=== PATIENT | female | born 1955 | race Caucasian/White ===

== ENCOUNTER 2018-12-14 06:43 | Inpatient (IN) | payer OTHER ==
--- NOTE | 2018-12-01 14:59 | HP ---
Amended report to enter cosigning physician. HISTORY AND PHYSICAL: DATE OF ADMISSION/SURGERY: 12/14/18 DATE OF OFFICE VISIT: 12/01/18 SURGEON: Mary Ann Rodriguez MD* (dictated by ANNETTE Thrasher). PROCEDURE: Left total knee arthroplasty. CHIEF COMPLAINT: Left knee pain. HISTORY OF PRESENT ILLNESS: Ms. Gonzalez is a 63-year-old female with complaints of left knee pain. She has failed conservative treatment and elected to proceed with a left total knee arthroplasty. PAST MEDICAL HISTORY: 1. Hypothyroidism. 2. High cholesterol. 3. GERD. 4. Mitral valve prolapse. PAST SURGICAL HISTORY: Bunionectomy. CURRENT MEDICATIONS: 1. Levothyroxine 88 mcg a day. 2. Omeprazole 40 mg a day. 3. Rosuvastatin calcium 10 mg a day. 4. Ibuprofen as needed. 5. Trazodone 100 mg q.h.s. 6. Equate Allergy Relief. 7. Mometasone as needed. ALLERGIES: PENICILLIN and CODEINE. FAMILY HISTORY: Coronary artery disease and diabetes. SOCIAL HISTORY: She is a 63-year-old female. She lives with her . She does not smoke. She quit 5 years ago. Denies use of drugs. Use of occasional alcohol. REVIEW OF SYSTEMS: A complete 14-point review of systems was reviewed with the patient. It was positive for hypothyroidism and GERD. She denies history of DVT, PE, hepatitis, HIV, or anesthesia problems. PHYSICAL EXAMINATION GENERAL: She is well developed, well nourished, in no acute distress. VITAL SIGNS: She stands 5 feet 2 inches tall, weighs 172 pounds. Her blood pressure is 122/84. Heart rate is 78. HEENT: Normocephalic, atraumatic. NECK: Supple. No palpable lymph nodes. PULMONARY: The lungs are clear to auscultation bilaterally. CARDIO: Regular rate and rhythm. Strong S1, S2. ABDOMEN: Soft, nontender, nondistended. NEUROLOGICAL: She is alert and oriented x3. MUSCULOSKELETAL: Left lower extremity: The skin is intact. There are no open wounds or abrasions. There is a moderate effusion of the left knee joint. Range of motion is 10 to 120 degrees of flexion. She has some tenderness over the medial and lateral joint line. She has a 2+ dorsalis pedis pulse. She is able to dorsiflex and plantarflex and has intact sensation. ASSESSMENT AND PLAN: Ms. Gonzalez is a 63-year-old female with endstage osteoarthritis of the left knee. She has failed conservative treatment and elected to proceed with a left total knee arthroplasty. The surgery is scheduled for 12/14/[address] Rodriguez discussed the risks and benefits of the surgery at today's visit and all of her questions were answered. She will follow up with Dr. Rodriguez 2 weeks after the surgery. ANNETTE THRASHER [id number]/CPS #: [id number] MTDDanielle
[~2018-12-14 06:43] MED LIST: Buffered Lidocaine 1% SYRIN* 1 ML/SYRINGE INTRADERM ONE; Famotidine IV* 10 MG/ML 2 ML (20 mg) IV ONE; Gabapentin CAP(*) 300 MG PO ONE; Lactated Ringers 1000 ML Bag* 1,000 ML IV SCH; Tranexamic Acid 1,000 MG in NS 0.9% 50 ML* (outpatient use) IV SCH
--- OUTSIDE RECORDS SUMMARY | 2018-12-14 06:46 | XMS REPORT | Continuity of Care Document ---
:1955 External Reference #:[id number] Author Name Gita Johnson Care Team Providers Name Role Phone Bebo Alvarez MD Primary Care Physician Unavailable Payers Date Identification Numbers Payment Provider Subscriber Policy Number: [id number] Lifetime Benefit Solution Jihan Gonzalez PayID: [id number] [address] [place] [address] Problems Active Problems Provider Date Localized, primary osteoarthritis Mary Ann Rodriguez M.D. Onset: 07/21/2018 Metatarsalgia Mary Ann Rodriguez M.D. Onset: 07/21/2018 Family History Date Family Member(s) Observation Comments General No Current Problems Social History Type Date Description Comments Sex Unknown Lives With Spouse Occupation Auto Inspection Specialist ETOH Use Drinks 6 Alcoholic Beverages Per Week Tobacco Use Start: Unknown End: Patient is a former smoker Unknown Smoking Status Reviewed: 12/01/18 Patient is a former smoker Exercise Type/Frequency Exercises sporadically Allergies, Adverse Reactions, Alerts Active Allergies Reaction Severity Comments Date Penicillin 07/21/2018 Codeine 07/21/2018 Medications Active Medications SIG Qnty Indications Ordering Provider Date Clindamycin HCL 1 tablet by 9caps M79.675 Mary Ann Rodriguez, 12/01/2018 150mg mouth every 8 M.D. Capsules hours x 3 days Levothyroxine Sodium 1 by mouth every Unknown 88mcg day Tablets Omeprazole 1 by mouth every Unknown 40mg Capsules DR day Rosuvastatin Calcium take 1 tablet by Unknown 10mg mouth every Tablets evening Ibuprofen 1 by mouth three Unknown 800mg Tablets times a day Trazodone HCL 1 by mouth QHS Unknown 50mg Tablets for sleep Allergy Relief Unknown Mometasone Furoate Unknown Ketoconazole Unknown Medications Administered in Office Medication SIG Qnty Indications Ordering Provider Date Synvisc Or Synvisc-One Injection 1 Michael Garcia MD 08/24/2018 MG Injection Synvisc Or Synvisc-One Injection 1 Michael Garcia MD 08/17/2018 MG Injection Synvisc Or Synvisc-One Injection 1 Michael Garcia MD 08/10/2018 MG Injection Vital Signs Date Vital Result Comment 12/01/2018 9:46am Height 62 inches 5'2" Weight 172.00 lb BP Systolic 122 mmHg BP Diastolic 84 mmHg Body Temperature 97.8 F BMI (Body Mass Index) 31.5 kg/m2 10/16/2018 3:18pm Height 62 inches 5'2" Weight 175.00 lb Heart Rate 80 /min BP Systolic 142 mmHg BP Diastolic 90 mmHg Respiratory Rate 18 /min Body Temperature 98.1 F Pain Level 6 BMI (Body Mass Index) 32.0 kg/m2 08/24/2018 9:02am Height 62 inches 5'2" Weight 170.00 lb BP Systolic Sitting 138 mmHg BP Diastolic Sitting 82 mmHg Respiratory Rate 16 /min Pain Level 5 BMI (Body Mass Index) 31.1 kg/m2 08/17/2018 2:32pm Height 62 inches 5'2" Heart Rate 89 /min BP Systolic Sitting 148 mmHg BP Diastolic Sitting 102 mmHg Respiratory Rate 16 /min Pain Level 6 08/10/2018 2:29pm Height 62 inches 5'2" Weight 170.00 lb BP Systolic Sitting 122 mmHg BP Diastolic Sitting 64 mmHg Respiratory Rate 17 /min Pain Level 6 catching and burning pain BMI (Body Mass Index) 31.1 kg/m2 07/21/2018 10:26am Height 62 inches 5'2" Weight 170.50 lb Heart Rate 78 /min BP Systolic 138 mmHg BP Diastolic 88 mmHg Respiratory Rate 18 /min Pain Level 6 BMI (Body Mass Index) 31.2 kg/m2 Procedures Date Code Description Status 08/24/2018 Inject/Drain Joint/Bursa Major W/O US Completed 08/17/2018 Inject/Drain Joint/Bursa Major W/O US Completed 08/10/2018 Inject/Drain Joint/Bursa Major W/O US Completed Encounters Type Date Location Provider Dx Diagnosis Office Visit 10/16/2018 [facility] Mary [facility] Michael, M17.12 [facility], [facility] M25.562 Pain in left knee M25.462 Effusion, left knee Office Visit 07/21/2018 9:30a [facility] Mary Ann Rodriguez, M25.562 [facility] M[facility]462 Effusion, left knee M17.12 Unilateral primary osteoarthritis, left knee M77.42 Metatarsalgia, left foot Plan of Treatment Future Appointment(s):12/25/2018 1:30 pm - Mary Ann Rodriguez M.D. at [facility].12/14/2018 2:00 pm - CARRILLO Jiménez at [facility].12/14/2018 2:00 pm - CARRILLO Daily at [facility].12/14/2018 2:00 pm - ANNETTE Rangel at [facility].12/14/2018 2:00 pm - Mary Ann Rodriguez M.D. at [facility].12/01/2018 - Mary Ann Rodriguez M.D.M17.12 Unilateral primary osteoarthritis, left kneeFollow up:Follow up: 2 weeks after [id number] Pain in left kneeM25.462 Effusion, left kneeM79.675 Pain in left toe(s)New Medication:Clindamycin HCL 150 mg - 1 tablet by mouth every 8 hours x 3 days
--- OUTSIDE RECORDS SUMMARY | 2018-12-14 06:46 | XMS REPORT | Continuity of Care Document ---
:1955 External Reference #:[id number] Author Name ANNETTE Rangel Address [address] , [place] [address] Care Team Providers Name Role Phone Bebo Alvarez MD Primary Care Physician Unavailable Payers Date Identification Numbers Payment Provider Subscriber Policy Number: [id number] Lifetime Benefit Solution Jihan Gonzalez PayID: [id number] [address] [place] [address] Problems Active Problems Provider Date Localized, primary osteoarthritis Mary Ann Rodriguez M.D. Onset: 07/21/2018 Metatarsalgia Mary Ann Rodriguez M.D. 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 Drinks 6 Alcoholic Beverages Per Week Tobacco Use Start: Unknown End: Patient is a former smoker Unknown Smoking Status Reviewed: 10/16/18 Patient is a former smoker Exercise Type/Frequency Exercises sporadically Allergies, Adverse Reactions, Alerts Active Allergies Reaction Severity Comments Date Penicillin 07/21/2018 Codeine 07/21/2018 Medications Active Medications SIG Qnty Indications Ordering Provider Date Levothyroxine Sodium 1 by mouth every Unknown 88mcg day Tablets Omeprazole 1 by mouth every Unknown 40mg Capsules DR day Rosuvastatin Calcium take 1 tablet by Unknown 10mg mouth every Tablets evening Ibuprofen 1 by mouth three Unknown 800mg Tablets times a day Trazodone HCL 1 by mouth QHS Unknown 50mg Tablets for sleep Medications Administered in Office Medication SIG Qnty Indications Ordering Provider Date Synvisc Or Synvisc-One Injection 1 Michael Garcia MD 08/24/2018 MG Injection Synvisc Or Synvisc-One Injection 1 Michael Garcia MD 08/17/2018 MG Injection Synvisc Or Synvisc-One Injection 1 Michael Garcia MD 08/10/2018 MG Injection Vital Signs Date Vital Result Comment 10/16/2018 3:18pm Height 62 inches 5'2" Weight [...] 31.2 kg/m2 Procedures Date Code Description Status 08/24/201829415 Inject/Drain Joint/Bursa Major W/O US Completed 08/17/201848184 Inject/Drain Joint/Bursa Major W/O US Completed 08/10/2018 24728 Inject/Drain Joint/Bursa Major W/O US Completed Encounters Type Date Location Provider Dx Diagnosis Office Visit 10/16/2018 [facility] Mary Ann Rodriguez, M17.12 Unilateral primary 2:45p [facility] osteoarthritis, left knee M25.562 Pain in left knee M25.462 Effusion, left knee Office Visit 07/21/2018 9:30a [facility] Mary Ann Rodriguez, M25.562 [facility] in left [facility] knee M25.462 Effusion, left knee M17.12 Unilateral primary osteoarthritis, left knee M77.42 Metatarsalgia, left foot Plan of Treatment Future Appointment(s):12/14/2018 2:00 pm - Mary Ann Rodriguez M.D. at [facility].12/01/2018 9:30 am - Mary Ann Rodriguez M.D. at [facility]..10/16/2018 - Mary Ann Rodriguez M.D.M17.12 Unilateral primary osteoarthritis, left kneeFollow up:Follow up: 7-10 days before [id number] Pain in left kneeM25.462 Effusion, left knee
--- OUTSIDE RECORDS SUMMARY | 2018-12-14 06:47 | XMS REPORT | Continuity of Care Document ---
:1955 External Reference #:[id number] Author Name Bebo Bass M.D. Address [address], [address] [place] [address] Care Team Providers Name Role Phone Bebo Bass M.D. Care Team Information Supervisor Riveting Unavailable Payers Date Identification Numbers Payment Provider Subscriber Policy Number: [id number] [employer] Jihan Gonzalez Group Number: [id number] PayID: [place] [address] Problems Active Problems Provider Date Mixed hyperlipidemia Bebo Bass M.D. Onset: 10/08/2010 Hypothyroidism Bebo Bass M.D. Onset: 10/08/2010 Gastro-esophageal reflux disease with SULY Mcginnis Onset: 05/30/2018 esophagitis Other sleep disorders SULY Mcginnis Onset: 05/30/2018 Candidiasis of skin and nails SULY Mcginnis Onset: 05/30/2018 Knee pain SULY Mcginnis Onset: 05/30/2018 Acute pharyngitis SULY Mcginnis Onset: 09/13/2018 Family History Date Family Member(s) Observation Comments Father due to Alzheimer's () Disease Father due to Diabetes () - at 78 Mother 84, htn, dm, on coumadin as of 02/07/2005 2009 Siblings Siblings: 6 , sister with thyroid [id number] dx with Vascular and chol Dementia Social History Type Date Description Comments Sex Unknown Marital Status Occupation [employer] currently working Tobacco Use Start: Unknown Occasionally Smokes Cigarettes ETOH Use Currently consumes 1 six packs of beer weekly Tobacco Use Start: Unknown End: Patient is a former smoker quit at age 56 Unknown Smoking Status Reviewed: 11/15/18 Patient is a former smoker quit at age 56 Allergies, Adverse Reactions, Alerts Active Allergies Reaction Severity Comments Date Penicillin 10/02/2003 Codeine 10/02/2003 Medications Active Medications SIG Qnty Indications Ordering Date Provider Mometasone Furoate apply to dry skin 15gm Bebo Bass, 11/15/2018 0.1% 1-2 times a day M.DToribio Ointment Trazodone HCL take 1 tablet by 90tabs G47.8 Sonia 10/24/2018 100mg mouth at bedtime SULY John Tablets Ketoconazole apply to affected 15gm B37.2 [facility] 05/30/2018 2% Cream area twice a day SULY John Rosuvastatin Calcium 1 by mouth every 30tabs E78.2 Sonia 05/30/2018 10mg day SULY John Tablets Ibuprofen take 1 by mouth 90tabs Sonia 08/13/2013 800mg Tablets three times a day SULY John w/ food Omeprazole 1 by mouth every 30caps Sonia 09/14/2012 40mg Capsules day SULY John DR Levothyroxine Sodium take one tablet 30tabs Sonia 12/03/2010 by mouth every SULY John 88mcg Tablets day History Medications Azithromycin 2 tabs by 6tabs J02.9 Sonia John, 09/12/2018 - 250mg mouth on day [facility] 09/22/2018 Tablets 1, then 1 tab by mouth day on days 2-5 Azithromycin 2 tabs by 6tabs J06.9 Sonia John, 07/31/2018 - 250mg mouth on day [facility] 08/10/2018 Tablets 1, then 1 tab by mouth day on days 2-5 Trazodone HCL 1 by mouth 30tabs G47.8 Sonia John, 05/30/2018 - 50mg every night at [facility] 10/24/2018 Tablets bedtime Sulfamethoxazole/Tri 1 by mouth 14tabs S50.812A Sonia John, 2016 - methoprim DS twice a day [employer] 04/23/2017 x7d 800-160mg Tablets Benzonatate take 1 by 30caps R05 Sonia John, 04/15/2017 - 200mg mouth three [facility] 04/25/2017 Capsules times a day as needed for cough. Azithromycin 2 tabs by 6tabs J06.9 Sonia John, 03/24/2017 - 250mg mouth on day [employer] 04/03/2017 Tablets 1, then 1 tab by mouth day on days 2-5 Valacyclovir HCL 1 by mouth 21tabs B02.9 Sonia John, 11/21/2015 - 1gm three times a [employer] 11/21/2015 Tablets day x 7 days Zovirax 1 po 5xs a 35tabs B02.9 Sonia John, 11/21/2015 - 800mg Tablets dayx7d [facility] 10/27/2016 Valacyclovir HCL 1 by mouth 21tabs B02.9 Sonia John, 11/21/2015 - 1gm three times a [facility] 10/27/2016 Tablets day x 7 days Diazepam 1 po bid prn 10tabs Bebo Bass, 08/13/2013 - 5mg Tablets panic attacks M.D. 08/07/2015 Trazodone HCL 1 po qhs 90tabs 780.52 Bebo Bass, 03/14/2013 - 50mg M.D. 08/07/2015 Tablets Diazepam 1 po bid prn 10tabs Bebo Bass, 09/14/2012 - 5mg Tablets panic attacks M.D. 03/14/2013 Lansoprazole 1 po qd 90caps Bebo Bass, 03/15/2012 - 30mg M.D. 09/14/[address] Azithromycin 2 tabs po on 6tabs 465.8 Sonia John, 09/29/2011 - 250mg day 1, then 1 [employer] 10/09/2011 Tablets tab po day on days 2-5 Ciprofloxacin HCL 1 po bid 20tabs 599.0 Bebo Bass, 09/16/2011 - M.D. 09/20/2011 500mg Tablets Azithromycin 2 tabs po on 6tabs 466.0 Bebo Bass, 03/30/2011 - 250mg day 1, then 1 M.D. 09/16/2011 Tablets tab po day on days 2-5 Simvastatin 1 po qd 45tabs 272.2 Bebo Bass, 07/27/2010 - 40mg M.D. 03/30/2011 Tablets Zolpidem Tartrate 1 po q hs prn 30tabs 780.79 Bebo Bass, 11/20/2009 - 5mg M.D. 09/14/2012 Tablets Levothroid 1 po qd 30tabs Bebo Bass, 11/11/2009 - 88mcg M.D. 12/03/2010 Tablets Azithromycin 2 tabs po on 6tabs 465.8 Sonia John, 07/30/2009 - 250mg day 1, then 1 [employer] 08/09/2009 Tablets tab po day on days 2-5 Darvocet-N 100 1 po hs pain 30tabs Bebo Bass, 05/22/2008 - 100 M.D. 05/23/2009 Tablets Ibuprofen take 1 po tid 270tabs 719.46 Bebo Bass, 05/22/2008 - 800mg w/ food M.D. 08/13/2013 Tablets Valtrex take 1 pill 21tabs 053.9 Sonia John, 04/08/2008 - 1gm Tablets q8hrs x7d [employer] 04/15/2008 Ibuprofen 1 po q6 hours 30tabs 719.46 Sonia John, 04/08/2008 - 600mg prn with food [employer] 05/22/2008 Tablets Lipitor 1 po qd 30tabs Bebo Bass, 07/19/2006 - 20mg Tablets M.D. 01/12/2007 Zithromax Z-Elver take 2pills 462 Sonia John, 06/15/2005 - 250mg today then 1 [employer] 08/25/2005 Tablets [id number] Levothroid 1 po qd 30tabs Bebo Bass, 02/09/2005 - 100McG M.D. 11/11/2009 Tablets Levothroid 1 po qd 30tabs Bebo Bass, 11/04/2004 - 75mcg M.D. 02/09/2005 Tablets Synthroid 1 po qd 30tabs Bebo Bass, 07/01/2003 - .075mg M.D. 11/04/2004 Tablets Prevacid 1 po qd 30caps Bebo Bass, 07/01/2003 - 30mg M.D. 03/15/2012 Capsules Melatonin 1 at bedtime Unknown - 10mg 05/30/2018 Capsules Medications Administered in Office Medication SIG Qnty Indications Ordering Provider Date Admin Of Vaccine,One Vaccine Injection/BP Schedule 04/15/2017 Injection Immunizations CPT Code Status Date Vaccine Lot # [id number] Given 04/15/2017 Tdap, adacel vaccine [facility] 71023-675-83 .[id number] Given 04/15/2017 Tdap, adacel vaccine [facility] 98137-977-74 .[id number] Given 03/21/2003 Tetanus&Diptheria Toxoid Immunization(deleted 2012) Vital Signs Date Vital Result Comment 11/15/2018 2:44pm Weight 178.00 lb Height 62 inches 5'2" BP Systolic 130 mmHg BP Diastolic 76 mmHg Body Temperature 98.3 F Heart Rate 86 /min BMI (Body Mass Index) 32.6 kg/m2 09/12/2018 11:23am Weight 170.00 lb Height 62 inches 5'2" BP Systolic 140 mmHg BP Diastolic 86 mmHg Body Temperature 98.7 F Heart Rate 89 /min O2 % BldC Oximetry 97 % BMI (Body Mass Index) 31.1 kg/m2 07/31/2018 2:48pm Weight 166.00 lb Height 62 inches 5'2" BP Systolic 142 mmHg BP Diastolic 84 mmHg Body Temperature 100.3 F Heart Rate 88 /min O2 % BldC Oximetry 98 % BMI (Body Mass Index) 30.4 kg/m2 05/30/2018 4:24pm Weight 177.00 lb Height 62 inches 5'2" BP Systolic 144 mmHg BP Diastolic 94 mmHg Heart Rate 68 /min BMI (Body Mass Index) 32.4 kg/m2 04/15/2017 2:44pm Weight 171.00 lb Height 62 inches 5'2" BP Systolic 140 mmHg BP Diastolic 80 mmHg Body Temperature 98.5 F Heart Rate 74 /min BMI (Body Mass Index) 31.3 kg/m2 03/24/2017 4:00pm Weight 174.12 lb Height 62 inches 5'2" BP Systolic 140 mmHg BP Diastolic 76 mmHg Body Temperature 97.2 F Heart Rate 77 /min BMI (Body Mass Index) 31.8 kg/m2 11/02/2016 1:59pm BP Systolic 148 mmHg BP Diastolic 88 mmHg Heart Rate 80 /min Pain Level 8 10/27/2016 3:21pm Weight 172.12 lb Height 62 inches 5'2" BP Systolic 134 mmHg BP Diastolic 82 mmHg Heart Rate 88 /min BMI (Body Mass Index) 31.5 kg/m2 11/21/2015 2:24pm Weight 171.00 lb Height 62 inches 5'2" BP Systolic 120 mmHg BP Diastolic 64 mmHg Heart Rate 72 /min BMI (Body Mass Index) 31.3 kg/m2 02/12/2014 4:13pm Weight 162.00 lb Height 62 inches 5'2" BP Systolic 122 mmHg BP Diastolic 60 mmHg Heart Rate 76 /min BMI (Body Mass Index) 29.6 kg/m2 08/13/2013 4:31pm Weight 163.00 lb Height 62 inches 5'2" BP Systolic 142 mmHg BP Diastolic 88 mmHg Heart Rate 72 /min BMI (Body Mass Index) 29.8 kg/m2 03/19/2013 1:25pm Weight 154.00 lb Height 62 inches 5'2" BP Systolic 130 mmHg BP Diastolic 88 mmHg Heart Rate 72 /min BMI (Body Mass Index) 28.2 kg/m2 03/14/2013 4:43pm Weight 152.00 lb Height 62 inches 5'2" BP Systolic 128 mmHg BP Diastolic 70 mmHg Heart Rate 68 /min BMI (Body Mass Index) 27.8 kg/m2 09/14/2012 4:44pm Weight 155.00 lb Height 62 inches 5'2" BP Systolic 122 mmHg BP Diastolic 62 mmHg Heart Rate 76 /min BMI (Body Mass Index) 28.3 kg/m2 03/15/2012 3:22pm Weight 167.00 lb Height 62 inches 5'2" BP Systolic 140 mmHg BP Diastolic 86 mmHg Heart Rate 72 /min BMI (Body Mass Index) 30.5 kg/m2 09/29/2011 1:21pm Weight 171.00 lb Height 62 inches 5'2" BP Systolic 130 mmHg BP Diastolic 78 mmHg Body Temperature 98.2 F Heart Rate 68 /min BMI (Body Mass Index) 31.3 kg/m2 09/16/2011 1:59pm Weight 168.00 lb Height 62 inches 5'2" BP Systolic 120 mmHg BP Diastolic 72 mmHg Heart Rate 80 /min BMI (Body Mass Index) 30.7 kg/m2 03/30/2011 11:07am Weight 168.00 lb Height 62 inches 5'2" BP Systolic 150 mmHg BP Diastolic 84 mmHg Body Temperature 98.1 F Heart Rate 80 /min O2 % BldC Oximetry 98 % BMI (Body Mass Index) 30.7 kg/m2 10/08/2010 1:22pm Weight 169.00 lb Height 62 inches 5'2" BP Systolic 136 mmHg BP Diastolic 82 mmHg Heart Rate 76 /min BMI (Body Mass Index) 30.9 kg/m2 07/27/2010 4:44pm Weight 176.00 lb Height 62 inches 5'2" BP Systolic 138 mmHg BP Diastolic 82 mmHg Heart Rate 84 /min BMI (Body Mass Index) 32.2 kg/m2 02/23/2010 3:43pm Weight 169.00 lb Height 62 inches 5'2" BP Systolic 130 mmHg BP Diastolic 80 mmHg Heart Rate 68 /min BMI (Body Mass Index) 30.9 kg/m2 11/20/2009 3:50pm Weight 166.00 lb Height 62 inches 5'2" BP Systolic 126 mmHg BP Diastolic 82 mmHg Heart Rate 84 /min BMI (Body Mass Index) 30.4 kg/m2 07/30/2009 1:11pm Weight 164.00 lb BP Systolic 125 mmHg BP Diastolic 80 mmHg Body Temperature 98.5 F Heart Rate 76 /min 05/23/2009 4:28pm Weight 162.00 lb Height 62.00 inches 5'2" BP Systolic 136 mmHg BP Diastolic 80 mmHg Heart Rate 72 /min BMI (Body Mass Index) 29.6 kg/m2 05/22/2008 4:18pm Height 62 inches 5'2" BP Systolic 140 mmHg BP Diastolic 80 mmHg Heart Rate 72 /min 04/08/2008 3:58pm Weight 162.00 lb Height 62 inches 5'2" BP Systolic 130 mmHg BP Diastolic 80 mmHg Heart Rate 60 /min BMI (Body Mass Index) 29.6 kg/m2 01/12/2007 9:42am Weight 159.00 lb Height 62 inches 5'2" BP Systolic 130 mmHg BP Diastolic 90 mmHg Heart Rate 64 /min BMI (Body Mass Index) 29.1 kg/m2 06/13/2006 4:09pm Weight 161.00 lb Height 62 inches 5'2" BP Systolic 120 mmHg BP Diastolic 85 mmHg Heart Rate 84 /min BMI (Body Mass Index) 29.4 kg/m2 12/13/2005 9:03am Weight 154.00 lb Height 62 inches 5'2" BP Systolic 126 mmHg BP Diastolic 74 mmHg Heart Rate 64 /min BMI (Body Mass Index) 28.2 kg/m2 08/31/2005 3:05pm Weight 157.00 lb Height 62 inches 5'2" BP Systolic 124 mmHg BP Diastolic 80 mmHg Heart Rate 76 /min BMI (Body Mass Index) 28.7 kg/m2 06/15/2005 10:50am Height 62 inches 5'2" BP Systolic 120 mmHg BP Diastolic 90 mmHg Body Temperature 97.3 F 05/21/2005 2:35pm Height 62 inches 5'2" BP Systolic 110 mmHg BP Diastolic 70 mmHg Heart Rate 68 /min 02/08/2005 4:33pm Weight 150.00 lb Height 62 inches 5'2" BP Systolic 110 mmHg BP Diastolic 74 mmHg Heart Rate 72 /min BMI (Body Mass Index) 27.4 kg/m2 01/03/2004 8:58am Weight 140.00 lb Height 62 inches 5'2" BP Systolic 120 mmHg BP Diastolic 70 mmHg Heart Rate 80 /min BMI (Body Mass Index) 25.6 kg/m2 10/02/2003 9:52am Weight 151.00 lb Height 62 inches BP Systolic 110 mmHg BP Diastolic 76 mmHg Heart Rate 60 /min BMI (Body Mass Index) 27.6 kg/m2 Results Test Date Facility Test Result H/L Range Note Lipid Studies 10/18/2018 [facility] Triglycerides 162 mg/dL High 0-[address] [address] [phone] Cholesterol 221 mg/dL High 120-200 HDL Cholesterol 58.0 mg/dL 40-60 VLDL (Calc.) 32 mg/dL High <31 Cholesterol/HDL 3.81 Ratio <5.00 LDL (Calc.) 131 mg/dL High 0-99 1 Comp. Metabolic 10/18/2018 [facility] Glucose 96.6 mg/dL 65 -[address] [id number] [phone] BUN 19.9 mg/dL 7-21 Co2 22.2 mmol/L 22-30 Sodium 139 mmol/L 137-145 Potassium 4.5 mmol/L 3.6-5.2 Chloride 105 mmol/L 98-110 Calcium 9.4 mg/dL 9-10.8 Creatinine 0.83 mg/dL 0.52-1.25 eGFR (Female) >60 2 Total Protein 7.28 g/dL 6.3-8.2 Albumin 3.74 g/dL 3.3-4.50 Sgot (Ast) 16.0 U/L 5-40 Alk Phosphatase 66.0 U/L 38-126 Total Bilirubin 0.38 mg/dL 0.2-1.3 SGPT (Alt) 16.0 U/L 7-56 Anion Gap (Calc) 11.8 7-16 BUN/Crea Ratio 24.0 Ratio 7-25 Globulin (Calc) 3.54 g/dL High 2.3-3.5 A/G Ratio (Calc) 1.1 Ratio 1.1-2.2 Laboratory 09/12/2018 [facility] Culture Predominant 3 test finding [address] [facility] [address] <[place] [address] NOTE> [phone] Influenza 07/31/2018 [facility] Influenza A PCR Not Detected Not A&B PCR [address] [facility] [address] [phone] Influenza B PCR Not Detected Not Detected Lipid Studies 05/24/2018 [facility] Triglycerides 159 mg/dL High 0-[address] [address] [phone] Cholesterol 305 mg/dL High 120-200 HDL Cholesterol 61.0 mg/dL High 40-60 VLDL (Calc.) 32 mg/dL High <31 Cholesterol/HDL 5.00 Ratio High <5.00 LDL (Calc.) 212 mg/dL High 0-99 4 Comp. Metabolic 05/24/2018 [facility] Glucose 95.7 mg/dL 65 -[address] [address] [phone] BUN 17.3 mg/dL 7-21 Co2 22.8 mmol/L 22-30 Sodium 138 mmol/L 137-145 Potassium 4.1 mmol/L 3.6-5.2 Chloride 104 mmol/L 98-110 Calcium 9.8 mg/dL 9-10.5 Creatinine 0.79 mg/dL 0.52-1.25 eGFR (Female) >60 5 Total Protein 7.61 g/dL 6.3-8.2 Albumin 3.95 g/dL 3.3-4.50 Sgot (Ast) 16.0 U/L 5-40 Alk Phosphatase 63.0 U/L 38-126 Total Bilirubin 0.60 mg/dL 0.2-1.3 SGPT (Alt) 19.0 U/L 7-56 Anion Gap (Calc) 11.2 7-16 BUN/Crea Ratio 21.9 Ratio 7-25 Globulin (Calc) 3.66 g/dL High 2.3-3.5 A/G Ratio (Calc) 1.1 Ratio 1.1-2.2 Thy (TSH And Free T4) 05/24/2018 [facility] TSH 3.56 uIU/mL 0.5-6.[address] [phone] Free T4 1.00 ng/dL 0.75-1.54 Laboratory test 10/27/2016 [facility] TSH 1.98 uIU/mL 0.5- 6.0 finding [address] [phone] Free T4 1.05 ng/dL 0.75-1.54 Lipid Studies 03/19/2013 [facility] Triglycerides 160 mg/dL High 0-[address] [address] [phone] Cholesterol 268 mg/dL High 120-200 HDL Cholesterol 64.0 mg/dL High 40-60 VLDL (Calc.) 32 mg/dL High <31 Cholesterol/HDL 4.19 Ratio <5.00 LDL (Calc.) 172 mg/dL High 0-99 6 Thy (TSH And Free T4) 03/19/2013 [facility] TSH 0.84 uIU/mL 0.5-6.[address] [address] [phone] Free T4 1.13 ng/dL 0.75-1.54 Basic Metabolic 03/19/2013 [facility] Glucose 92.4 mg/dL 65 -[address] [address] [phone] BUN 17.3 mg/dL 7-21 Co2 25.2 mEq/L 22-30 Sodium 139 mEq/L 137-145 Potassium 4.0 mEq/L 3.6-5.0 Chloride 105 mEq/L 98-107 Calcium 9.8 mg/dL 9-10.5 Creatinine 0.80 mg/dL 0.52-1.25 Anion Gap (Calc) 8.8 7-16 BUN/Crea Ratio 21.6 Ratio 7-25 Laboratory test 03/19/2013 [facility] eGFR (Female) 79 >59 7 finding [address] [phone] Comp. Metabolic 09/21/2012 [facility] Glucose 99.9 65-110 77 [facility] 310 mg/dL [place], [place] [id number] [phone] BUN 21.3 mg/dL High 7-21 Co2 24.9 mEq/L 22-30 Sodium 139 mEq/L 137-145 Potassium 4.3 mEq/L 3.6-5.0 Chloride 104 mEq/L 98-107 Calcium 10.0 mg/dL 9-10.5 Creatinine 0.85 mg/dL 0.52-1.25 Total Protein 7.61 g/dL 6.3-8.2 Albumin 4.08 g/dL 3.3-4.50 Sgot (Ast) 14.0 IU/L 5-40 Alk Phosphatase 62.0 IU/L 38-126 Total Bilirubin 0.62 mg/dL 0.2-1.3 SGPT (Alt) 14.0 IU/L 7-56 Anion Gap (Calc) 10.1 7-16 BUN/Crea Ratio 25.1 Ratio High 7-25 Globulin (Calc) 3.53 g/dL High 2.3-3.5 A/G Ratio (Calc) 1.2 Ratio 1.1-2.2 Lipid Studies 09/21/2012 [facility] Triglycerides 101 mg/dL 0-[address] [address] [phone] Cholesterol 262 mg/dL High 120-200 HDL Cholesterol 54.0 mg/dL 40-60 VLDL (Calc.) 20 mg/dL <31 Cholesterol/HDL 4.85 Ratio <5.00 LDL (Calc.) 188 mg/dL High 0-99 8 Thy (TSH And Free T4) 09/21/2012 [facility] TSH 1.38 uIU/mL 0.5-6.[address] [phone] Free T4 1.29 ng/dL 0.75-1.54 Laboratory test 09/21/2012 [facility] eGFR (Female) 74 >59 9 finding [address] [phone] Thy (TSH And Free 06/23/2012 [facility] TSH 2.28 0.5-6.0 T4) 77 [facility] 310 uIU/mL [place], [place] [id number] [phone] Free T4 1.03 ng/dL 0.75-1.54 Lipid Studies 06/23/2012 [facility] Triglycerides 70 mg/dL 0-[address] [address] [phone] Cholesterol 262 mg/dL High 120-200 HDL Cholesterol 58.0 mg/dL 40-60 VLDL (Calc.) 14 mg/dL <31 Cholesterol/HDL 4.52 Ratio <5.00 LDL (Calc.) 190 mg/dL High 0-99 10 Basic Metabolic 06/23/2012 [facility] Glucose 91.0 mg/dL 65 -110 [address] [address] [phone] BUN 20.3 mg/dL 7-21 Co2 21.6 mEq/L Low 22-30 Sodium 139 mEq/L 137-145 Potassium 4.4 mEq/L 3.6-5.0 Chloride 106 mEq/L 98-107 Calcium 9.8 mg/dL 9-10.5 Creatinine 0.90 mg/dL 0.52-1.25 Anion Gap (Calc) 11.4 7-16 BUN/Crea Ratio 22.6 Ratio 7-25 Laboratory test 06/23/2012 [facility] eGFR (Female) 69 >59 11 finding [address] [address] [phone] Culture Urine 09/16/2011 [facility] Culture Mixed 12 17 [facility] [place] [address] <SEE NOTE> [phone] Culture Observations MRSA screen test <SEE NOTE> 13 Thy (TSH And Free T4) 09/16/2011 [facility] TSH 2.47 uIU/mL 0.5-6.[address] [address] [phone] Free T4 1.04 ng/dL 0.75-1.54 CBC 09/16/2011 [facility] WBC 6.1 10^3/uL 4.8-10.[address] [address] [phone] RBC 4.42 10^6/uL 4.2-6.1 HGB 13.7 g/dL 12.0-18.0 HCT 40.3 % 37-52 MCV 91.3 fL 80.0-99.0 MCH 31.1 pg High 27.0-31.0 MCHC 34.0 g/dL 33.0-37.0 RDW 12.80 % 11.0-15.0 MPV 6.6 fL Low 7.4-10.4 Platelets 319 10^3/uL 130-400 Comp. Metabolic 09/16/2011 [facility] Glucose 94.0 mg/dL 65 -[address] [place] [phone] BUN 14.3 mg/dL 7-21 Co2 23.1 mEq/L 22-30 Sodium 140 mEq/L 137-145 Potassium 4.2 mEq/L 3.6-5.0 Chloride 104 mEq/L 98-107 Calcium 9.6 mg/dL 9-10.5 Creatinine 0.74 mg/dL 0.52-1.25 Total Protein 7.87 g/dL 6.3-8.2 Albumin 3.93 g/dL 3.3-4.50 Sgot (Ast) 19.0 IU/L 5-40 Alk Phosphatase 81.0 IU/L 38-126 Total Bilirubin 0.37 mg/dL 0.2-1.3 SGPT (Alt) 24.0 IU/L 7-56 Anion Gap (Calc) 12.9 7-16 BUN/Crea Ratio 19.3 Ratio 7-25 Globulin (Calc) 3.94 g/dL High 2.3-3.5 A/G Ratio (Calc) 1.0 Ratio Low 1.1-2.2 Laboratory test 09/16/2011 [facility] eGFR (Female) 87 >59 14 finding [address] [address] [phone] Laboratory test 09/16/2011 [facility] Amylase 33 U/L 25- 115 finding 17 [place] [address] [phone] Lipase 129 U/L 73-390 Comp. Metabolic 10/08/2010 [facility] Glucose 90.0 mg/dL 65 -[address] [place] [phone] BUN 14.5 mg/dL 7-21 Co2 23.1 mEq/L 22-30 Sodium 142 mEq/L 137-145 Potassium 4.2 mEq/L 3.6-5.0 Chloride 105 mEq/L 98-107 Calcium 9.7 mg/dL 9-10.5 Creatinine 0.82 mg/dL 0.52-1.25 Total Protein 7.80 g/dL 6.3-8.2 Albumin 4.17 g/dL 3.3-4.50 Sgot (Ast) 15.0 IU/L 5-40 Alk Phosphatase 78.0 IU/L 38-126 Total Bilirubin 0.26 mg/dL 0.2-1.3 SGPT (Alt) 18.0 IU/L 7-56 Anion Gap (Calc) 13.9 7-16 BUN/Crea Ratio 17.7 Ratio 7-25 Globulin (Calc) 3.63 g/dL High 2.3-3.5 A/G Ratio (Calc) 1.1 Ratio 1.1-2.2 CBC 10/08/2010 [facility] WBC 6.4 10^3/uL 4.8-10.[address] [place] [phone] RBC 4.65 10^6/uL 4.2-6.1 HGB 14.2 g/dL 12.0-18.0 HCT 43.2 % 37-52 MCV 93.0 fL 80.0-99.0 MCH 30.6 pg 27.0-31.0 MCHC 32.9 g/dL Low 33.0-37.0 RDW 12.40 % 11.0-15.0 MPV 6.8 fL Low 7.4-10.4 Platelets 297 10^3/uL 130-400 Thy (TSH And Free T4) 10/08/2010 [facility] TSH 0.83 uIU/mL 0.5-6.[address] [place] [address] [phone] Free T4 1.18 ng/dL 0.75-1.54 Laboratory test 10/08/2010 [facility] eGFR (Female) 78 >59 15 finding [address] [address] [phone] Comp. Metabolic 07/02/2010 [facility] Glucose 90.9 65-110 77 [facility] 310 mg/dL [place], [place] 2360607 [phone] BUN 25.7 mg/dL High 7-21 Co2 21.1 mEq/L Low 22-30 Sodium 134 mEq/L Low 137-145 Potassium 4.6 mEq/L 3.6-5.0 Chloride 102 mEq/L 98-107 Calcium 9.5 mg/dL 9-10.5 Creatinine 0.82 mg/dL 0.52-1.25 Total Protein 7.37 g/dL 6.3-8.2 Albumin 4.00 g/dL 3.3-4.50 Sgot (Ast) 24.0 IU/L 5-40 Alk Phosphatase 73.0 IU/L 38-126 Total Bilirubin 0.30 mg/dL 0.2-1.3 SGPT (Alt) 32.0 IU/L 7-56 Anion Gap (Calc) 10.9 7-16 BUN/Crea Ratio 31.3 Ratio High 7-25 Globulin (Calc) 3.37 g/dL 2.3-3.5 A/G Ratio (Calc) 1.2 Ratio 1.1-2.2 Lipid Studies 07/02/2010 [facility] Triglycerides 198 mg/dL High 0-[address] [phone] Cholesterol 325 mg/dL High 120-200 HDL Cholesterol 58.0 mg/dL 40-60 VLDL (Calc.) 40 mg/dL High <31 Cholesterol/HDL 5.60 Ratio High <5.00 LDL (Calc.) 227 mg/dL High 0-99 16 Thy (TSH And Free T4) 07/02/2010 [facility] TSH 3.26 uIU/mL 0.5-6.[address] [phone] Free T4 0.91 ng/dL 0.75-1.54 Laboratory test 07/02/2010 [facility] eGFR (Female) 78 >59 17 finding [address] [address] [phone] Laboratory test 05/27/2009 [facility] Vitamin B12 392 pg/mL (211-946) 18 finding 17 [place] [address] [phone] Laboratory test 05/27/2009 [facility] eGFR (Female) 79 >59 19 finding [address] [address] [phone] Thy (TSH And Free 05/27/2009 [facility] TSH 0.51 0.5-6.0 T4) [address] [place] [address] uIU/mL [place], [place] [id number] [phone] Free T4 1.12 ng/dL 0.75-1.54 Lipid Studies 05/27/2009 [facility] Cholesterol 266 mg/dL High 120-[address] [id number] [phone] Triglycerides 138 mg/dL 0-149 HDL Cholesterol 62.0 mg/dL High 40-60 Direct LDL 177 High 0-99 VLDL (Calc.) 28 mg/dL <31 Cholesterol/HDL 4.29 Ratio <5.00 LDL (Calc.) 176 mg/dL High 0-99 Comp. Metabolic 05/27/2009 [facility] Albumin 3.82 g/dL 3.3 -4.[address] [address] [phone] Total Bilirubin 0.46 mg/dL 0.2-1.3 Calcium 9.7 mg/dL 9-10.5 Co2 24.1 mEq/L 22-30 Chloride 103 mEq/L 98-107 Creatinine 0.81 mg/dL 0.52-1.25 Alk Phosphatase 77.0 IU/L 38-126 Potassium 4.4 mEq/L 3.6-5.0 Total Protein 7.18 g/dL 6.3-8.2 Sodium 138 mEq/L 137-145 Sgot (Ast) 15.0 IU/L 5-40 SGPT (Alt) 18.0 IU/L 7-56 BUN 20.5 mg/dL 7-21 Glucose 100.6 mg/dL 65-110 Anion Gap (Calc) 10.9 7-16 BUN/Crea Ratio 25.3 Ratio High 7-25 Globulin (Calc) 3.36 g/dL 2.3-3.5 A/G Ratio (Calc) 1.1 Ratio 1.1-2.2 CBC 05/23/2008 [facility] WBC 5.9 10^3/uL 4.8-10.[address] [place] [address] [phone] RBC 4.22 10^6/uL 4.2-6.1 HGB 12.9 g/dL 12.0-18.0 HCT 38.3 % 37-52 MCV 90.9 fL 80.0-99.0 MCH 30.5 pg 27.0-31.0 MCHC 33.6 g/dL 33.0-37.0 RDW 12.80 % 11.0-15.0 MPV 6.1 fL Low 7.4-10.4 Platelets 353 10^3/uL 130-400 Laboratory test finding 05/23/2008 [facility] Sed Rate 5 mm/ hr 0-[address] [place] [address] [phone] Uric Acid 4.9 mg/dL 2.5-8.5 Renetta &Rheumatoid 05/23/2008 [facility] Renetta Screen TITER: <40 20 Factor 17 [facility] [place] [address] NOTE> [phone] Rheumatoid Factor NEGATIVE 21 Thy (TSH And Free T4) 04/08/2008 [facility] TSH 0.78 uIU/mL 0.5-6.[address] [place] [address] [phone] Free T4 1.63 ng/dL High 0.75-1.54 Thy (TSH And Free T4) 07/01/2006 [facility] TSH 2.53 uIU/mL 0.5-6.[address] [place], [place] [id number] [phone] Free T4 1.31 ng/dL 0.75-1.54 Lipid Studies 07/01/2006 [facility] Triglycerides 106 mg/dL 35-[address] [place] [address] [phone] Cholesterol 304 mg/dL High 120-200 HDL Cholesterol 69.0 mg/dL High 40-60 LDL (Calc.) 214 mg/dL High 0-99 VLDL (Calc.) 21 mg/dL <31 Cholesterol/HDL 4.41 Ratio <5.00 Renetta &Rheumatoid 08/31/2005 [facility] Renetta Screen TITER: <[address] [place] [address] NOTE> [phone] Rheumatoid Factor NEGATIVE 23 Thy (TSH And Free T4) 08/31/2005 [facility] TSH 3.59 uIU/mL 0.5-6.[address] [place] [phone] Free T4 0.91 ng/dL 0.75-1.54 Thy (TSH And Free T4) 05/21/2005 [facility] TSH 0.78 uIU/mL 0.5-6.[address] [place] [phone] Free T4 1.33 ng/dL 0.75-1.54 Laboratory test 03/12/2005 [facility] Free T4 1.20 ng/dL 0.75-1.[address] [place] [phone] TSH 1.55 uIU/mL 0.5-6.0 Thy (TSH And Free T4) 02/08/2005 [facility] TSH 5.18 uIU/mL 0.5-6.[address] [place] [address] [phone] Free T4 0.80 ng/dL 0.75-1.54 Lipid Studies 02/08/2005 [facility] Triglycerides 162 mg/dL High 35-[address] [place] [address] [phone] Cholesterol 227 mg/dL High 54-201 HDL Cholesterol 64.0 mg/dL 29-86 LDL (Calc.) 131 mg/dL 0-160 VLDL (Calc.) 32 mg/dL Cholesterol/HDL 3.55 Ratio <5.00 Thy (TSH And Free T4) 10/09/2003 [facility] TSH 1.38 uIU/mL 0.5-6.[address] [place] [phone] Free T4 1.31 ng/dL 0.75-1.54 Laboratory test 10/09/2003 [facility] Sed Rate 5 mm/hr 0- [address] [place] [address] [phone] Lipid Studies 10/09/2003 [facility] Triglycerides 69 mg/dL 35-[address] [address] [phone] Cholesterol 206 mg/dL High 54-201 HDL Cholesterol 56.0 mg/dL 29-86 LDL (Calc.) 136 mg/dL 0-160 VLDL (Calc.) 14 mg/dL Cholesterol/HDL 3.68 Ratio <5.00 Comp. Metabolic 10/09/2003 [facility] Glucose 88.0 mg/dL 65 -[address] [phone] BUN 14.0 mg/dL 7-21 Creatinine 0.90 mg/dL 0.7-1.5 Co2 29.0 mEq/L 22-30 Sodium 138 mEq/L 137-145 Potassium 4.6 mEq/L 3.6-5.0 Chloride 105 mEq/L 98-107 Calcium 9.3 mg/dL 9-10.5 Total Protein 7.20 g/dL 6.3-8.2 Albumin 4.10 g/dL 3.3-4.50 Sgot (Ast) 17.0 IU/L 5-40 Alk Phosphatase 60.0 IU/L 38-126 Total Bilirubin 0.30 mg/dL 0.2-1.3 SGPT (Alt) 34.0 IU/L 7-56 Anion Gap (Calc) 4.0 Low 7-16 BUN/Crea Ratio 15.6 Ratio 7-25 Globulin (Calc) 3.10 g/dL 2.3-3.5 A/G Ratio (Calc) 1.3 Ratio 1.1-2.2 1 LDL(Calc.) invalid if triglycerides >400. 2 For patients, multiply result by 1.159 Units expressed as mL/min/1.73m^2 Normal Range is > or=to 60. 3 Predominant Streptococcus pyogenes (Group A) 4 LDL(Calc.) invalid if triglycerides >400. 5 For patients, multiply result by 1.159 Units expressed as mL/min/1.73m^2 Normal Range is > or=to 60. 6 LDL(Calc.) invalid if triglycerides >400. 7 Units expressed as mL/min/1.73m^2 8 LDL(Calc.) invalid if triglycerides >400. 9 Units expressed as mL/min/1.73m^2 10 LDL(Calc.) invalid if triglycerides >400. 11 Units expressed as mL/min/1.73m^2 12 Mixed growth consistent with vaginal roverto present 13 MRSA screen test negative 14 Units expressed as mL/min/1.73m^2 15 Units expressed as mL/min/1.73m^2 16 LDL(Calc.) invalid if triglycerides >400. 17 Units expressed as mL/min/1.73m^2 18 NOTE: B12 LEVELS CAN VARY WITH INTAKE OF FOODS CONTAINING THIS VITAMIN. Testing performed by [address] [address] 19 Units expressed as mL/min/1.73m^2 20 TITER: <40 NEGATIVE Testing performed by [address] [address] 21 Testing performed by [address] [address] 22 TITER: <40 NEGATIVE Testing performed by [address] [address] 23 Testing performed by [address] [address] Procedures Date Code Description Status 11/15/2018 57423 EKG - In Office Completed 11/15/2018 57644 EKG - In Office Completed 05/01/2015 [id number] Mammogram Completed 07/27/2010 75130 Destruction Premalignant Lesion, First Lesion Completed 04/15/2007 [id number] Colonoscopy Completed 04/12/2003 09272 EKG - In Office Completed Encounters Type Date Location Provider Dx Diagnosis Office Visit 09/12/2018 Main Office Sonia John, J02.9 Acute pharyngitis, 11:00a [employer] unspecified Office Visit 07/31/2018 Main Office Sonia John, J11.1 Flu due to 2:20p [employer]GER unidentified influenza virus w oth resp manifest R05 Cough J06.9 Acute upper respiratory infection, unspecified Office Visit 05/30/2018 4:00p Main Office Sonia John, Z00.00 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 w/o abnormal findings E03.9 Hypothyroidism, unspecified E78.2 Mixed hyperlipidemia K21.0 Gastro-esophageal reflux disease with esophagitis G47.8 Other sleep disorders B37.2 Candidiasis of skin and nail Office Visit 04/15/2017 2:40p Main Office Sonia John, Z00.00 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 w/o abnormal findings E03.9 Hypothyroidism, unspecified K21.0 Gastro-esophageal reflux disease with esophagitis J06.9 Acute upper respiratory infection, unspecified R05 Cough S50.812A Abrasion of left forearm, initial encounter Office Visit 03/24/2017 4:20p Main Office Sonia John, J06.9 Acute upper [employer] respiratory infection, unspecified R05 Cough Office Visit 11/02/2016 2:00p Main Office Pb Huffman M17.12 Unilateral primary [place]ur[place], DO osteoarthritis, left knee M25.462 Effusion, left knee M18.12 Unil primary osteoarth of first carpometacarp joint, l hand Office Visit 10/27/2016 3:00p Main Office Sonia John, M25.562 Pain in left [employer] knee E03.9 Hypothyroidism, unspecified Office Visit 11/21/2015 2:20p Main Office Sonia John, B02.9 Zoster without [employer] MA[employer]GER complications Office Visit 02/12/2014 4:15p Main Office Bebo Bass 244.9 Hypothyroidism Other Kim Unspec 272.2 Hyperlipidemia Mixed 530.11 Esophagitis Reflux 780.52 Insomnia Unspecified 354.0 Carpal Tunnel Syndrome Office Visit 08/13/2013 4:30p Main Office Bebo 244.9 Hypothyroidism Del Bass M.D. Unspec 272.2 Hyperlipidemia Mixed 530.11 Esophagitis Reflux 780.52 Insomnia Unspecified Office Visit 03/19/2013 1:20p Main Office Sonia 379.90 [facility] Office Visit 03/14/2013 4:45p Main Office Bebo Bass 244.9 Hypothyroidism Other Kim Unspec 272.2 Hyperlipidemia Mixed 530.11 Esophagitis Reflux 780.52 Insomnia Unspecified Office Visit 09/14/2012 4:45p Main Office Bebo 244.9 Hypothyroidism Del Bass M.D. Unspec 530.11 Esophagitis Reflux 272.2 Hyperlipidemia Mixed 780.52 Insomnia Unspecified Office Visit 03/15/2012 3:15p Main Office Bebo 244.9 Hypothyroidism Other Kim Bass Unspec 530.11 Esophagitis Reflux 272.2 Hyperlipidemia Mixed 780.52 Insomnia Unspecified V70.0 Examination General Medical Routine AT Health Care Facility Office Visit 09/29/2011 1:20p Main Office Sonia John, 465.8 Upper Respiratory [employer]GER Infections Acute Other Multiple Sites 786.2 Cough Office Visit 09/16/2011 2:00p Main Office Bebo Bass, 599.0 UTI Urinary Tract M.D. Infection Site Not Spec 305.1 Tobacco Use Disorder Office Visit 03/30/2011 11:15a Main Office Bebo Bass, 466.0 Bronchitis Acute M.D. 305.1 Tobacco Use Disorder Office Visit 10/08/2010 1:20p Main Office Sonia John, 780.4 Dizziness & [employer]ING MANAGER Giddiness 244.9 Hypothyroidism Other Unspec Office Visit 07/27/2010 4:45p Main Office Bebo 272.2 Hyperlipidemia Mixed Kim Bass 244.9 Hypothyroidism Other Unspec 715.04 Osteoarthrosis Generalized Hand 701.9 Hypertrophic & Atrophic Conditions Of Skin Unspec Office Visit 02/23/2010 3:45p Main Office Bebo 272.2 Hyperlipidemia Mixed Kim Bass 244.9 Hypothyroidism Other Unspec 530.11 Esophagitis Reflux Office Visit 11/20/2009 4:00p Main Office Bebo Bass, 780.4 Dizziness & M.D. Giddiness 786.50 Pain Chest Unspec 244.9 Hypothyroidism Other Unspec 272.2 Hyperlipidemia Mixed 530.11 Esophagitis Reflux 780.79 Malaise And Fatigue Other Office Visit 07/30/2009 1:00p Main Office Sonia John, 465.8 Upper Respiratory [employer] MA[employer]GER Infections Acute Other Multiple Sites Office Visit 05/23/2009 4:30p Main Office Bebo Bass, 244.9 Hypothyroidism Other M.D. Unspec 530.11 Esophagitis Reflux 780.79 Malaise And Fatigue Other 272.2 Hyperlipidemia Mixed Office Visit 05/22/2008 4:20p Main Office Sonia John, 719.44 Pain Joint Hand [employer] Office Visit 04/08/2008 4:00p Main Office Sonia John, 053.9 Herpes Zoster W/O [employer]ING MANAGER Complication 244.9 Hypothyroidism Other Unspec 719.46 Pain Joint Lower Leg Office Visit 01/12/2007 9:40a Main Office Sonia John, 244.9 Hypothyroidism Other [employer]ING MANAGER Unspec 530.11 Esophagitis Reflux 719.46 Pain Joint Lower Leg Office Visit 06/13/2006 4:20p Main Office Sonia John, 244.9 Hypothyroidism Other [employer]ING MANAGER Unspec 530.11 Esophagitis Reflux Office Visit 12/13/2005 9:00a Main Office Sonia John, 244.9 Hypothyroidism Other [employer]ING MANAGER Unspec 530.11 Esophagitis Reflux Office Visit 08/31/2005 3:00p Main Office Sonia John, 244.9 Hypothyroidism Other [employer]FER[employer]ING MANAGER Unspec 530.11 Esophagitis Reflux 719.44 Pain Joint Hand Office Visit 06/15/2005 10:40a Main Office Sonia John, 462 Pharyngitis Acute [employer]ING MANAGER 244.9 Hypothyroidism Other Unspec 530.11 Esophagitis Reflux Office Visit 05/21/2005 2:40p Main Office Sonia John, 244.9 Hypothyroidism Other [employer]ING MANAGER Unspec 530.11 Esophagitis Reflux Office Visit 02/08/2005 4:30p Main Office Bebo Bass, 368.9 Visual Disturbances M.DToribio Unspec 244.9 Hypothyroidism Other Unspec 530.11 Esophagitis Reflux Office Visit 01/03/2004 9:00a Main Office Bebo Bass M.D. 786.2 Cough 244.9 Hypothyroidism Other Unspec 530.11 Esophagitis Reflux Office Visit 10/02/2003 10:00a Main Office Bebo 244.9 Hypothyroidism Del Bass M.D. Unspec 530.11 Esophagitis Reflux 394.9 Mitral Valve Disease Other Unspec 715.90 Osteoarthrosis Unspec Genlzd Or Localized Site Unspec Office Visit 04/12/2003 1:30p Main Office Bebo 244.9 Hypothyroidism Del Bass M.D. Unspec 530.11 Esophagitis Reflux 715.90 Osteoarthrosis Unspec Genlzd Or Localized Site Unspec 727.1 Bunion Office Visit 03/21/2003 4:30p Main Office Bebo Bass 681.00 Cellulitis & M.D. Abscess Finger Unspec V06.5 Tetanus Diphtheria (DT) Office Visit 03/18/2003 11:15a Main Office Armida Mae 681.00 Cellulitis & Nangle, M.D. Abscess Finger Unspec Plan of Treatment Future Appointment(s):06/04/2019 4:00 pm - [facility]ginn[facility] at [facility]/15/2018 - Bebo Bass M.D.Z01.818 Encounter for other preprocedural examinationFollow up:.E78.2 Mixed hyperlipidemiaNew Labs:Lipid Studies, Scheduled: 03/21/19Comp. Metabolic, Scheduled: 03/21/19Thy (TSH And Free T4), Scheduled: 03/21/19E03.8 HypothyroidismFollow up:4-6 months vguevcD73.9 Gastroesophageal reflux diseaseFollow up:.M25.562 Knee painFollow up :.AllNew Medication:Mometasone Furoate 0.1 % - apply to dry skin 1-2 times a day
--- OUTSIDE RECORDS SUMMARY | 2018-12-14 06:47 | XMS REPORT | Continuity of Care Document ---
:1955 External Reference #:[id number] Author Name Bebo Bass M.D. Address [address], [address] [place] [address] Care Team Providers Name Role Phone Bebo Bass M.D. Care Team Information Proposal Development Manager Unavailable Payers Date Identification Numbers Payment Provider Subscriber Policy Number: [id number] [employer] Jihan Gonzalez Group Number: [id number] PayID: [place] [address] Problems Active Problems Provider Date Mixed hyperlipidemia [...] Siblings Siblings: 6 , sister with thyroid dx with Vascular and chol Dementia Social History Type Date Description Comments Sex Unknown Marital Status Occupation [employer] currently working Tobacco Use Start: Unknown Occasionally [...] Medications SIG Qnty Indications Ordering Date Provider Trazodone HCL take 1 tablet by 90tabs G47.[address] [facility] 10/24/2018 100mg mouth at bedtime SULY John Tablets Ketoconazole apply to affected 15gm B37.[address] [facility] 05/30/2018 2% Cream area twice a day SULY John Rosuvastatin Calcium 1 by mouth every 30tabs E78.[address] [facility] 05/30/2018 10mg day SULY John Tablets Ibuprofen take 1 by mouth 90tabs [facility] 08/13/2013 800mg Tablets three times a day SULY John w/ food Omeprazole 1 by mouth every 30caps Sonia 09/14/2012 40mg Capsules day SULY John DR Levothyroxine Sodium take one tablet 30tabs Sonia 12/03/2010 by mouth every SULY John 88mcg Tablets day History Medications Azithromycin 2 tabs by 6tabs J02.9 Sonia John, 09/12/2018 - 250mg mouth on day [facility] 09/22/2018 Tablets 1, then 1 tab by mouth day on days 2-5 Azithromycin 2 tabs by 6tabs J06.9 Sonia John, 07/31/2018 - 250mg mouth on day [facility] 08/10/2018 Tablets 1, then 1 tab by mouth day on days 2-5 Trazodone HCL 1 by mouth 30tabs G47.8 Sonia John, 05/30/2018 - 50mg every night at [facility] 10/24/2018 Tablets bedtime Benzonatate take 1 by 30caps R05 Sonia John, 04/15/2017 - 200mg mouth three [facility] 04/25/2017 Capsules times a day as needed for cough. Sulfamethoxazole/Tri 1 by mouth 14tabs S50.812A Sonia John, 2016 - methoprim DS twice a day [employer] 04/23/2017 x7d 800-160mg Tablets Azithromycin 2 tabs by 6tabs J06.9 Sonia Alvaro, 03/24/2017 - 250mg mouth on day [employer] 04/03/2017 Tablets 1, then 1 tab by mouth day on days 2-5 Valacyclovir HCL 1 by mouth 21tabs B02.9 Sonia John, 11/21/2015 - 1gm three times a [facility] 11/21/2015 Tablets day x 7 days Zovirax 1 po 5xs a 35tabs B02.9 Sonia John, 11/21/2015 - 800mg Tablets dayx7d [facility] 10/27/2016 Valacyclovir HCL 1 by mouth 21tabs B02.9 Sonia Alvaro, 11/21/2015 - 1gm three times a [facility] 10/27/2016 Tablets day x 7 days Diazepam [...] 09/29/2011 - 250mg day 1, then 1 [employer] 10/09/2011 Tablets tab po day on days [...] 07/30/2009 - 250mg day 1, then 1 [employer] 08/09/2009 Tablets tab po day on days 2-5 Darvocet-N 100 1 po hs pain 30tabs Bebo Bass, 05/22/2008 - 100 M.D. 05/23/2009 Tablets Ibuprofen take 1 po tid 270tabs 719.46 Bebo Bass, 05/22/2008 - 800mg w/ food M.D. 08/13/2013 Tablets Valtrex take 1 pill 21tabs 053.9 Sonia John, 04/08/2008 - 1gm Tablets q8hrs x7d [employer] 04/15/2008 Ibuprofen 1 po q6 hours 30tabs 719.46 Sonia John, 04/08/2008 - 600mg prn with food [employer] 05/22/2008 Tablets Lipitor 1 po qd 30tabs Bebo Bass, 07/19/2006 - 20mg Tablets M.D. 01/12/2007 Zithromax Z-Elver take 2pills 462 Sonia John, 06/15/2005 - 250mg today then 1 [employer] 08/25/2005 Tablets qgarj4e Levothroid 1 po qd 30tabs Bebo Bass, [...] CPT Code Status Date Vaccine Lot # [id number] Given 04/15/2017 Tdap, adacel vaccine [facility] [id number] .[id number] Given 04/15/2017 Tdap, adacel vaccine [facility] 30711-013-26 .50ML [id number] Given 03/21/2003 Tetanus&Diptheria Toxoid Immunization(deleted 2012) Vital [...] Assoc Triglycerides 162 mg/dL High 0-[address] [phone] Cholesterol 221 mg/dL High 120-200 HDL Cholesterol 58.0 mg/dL 40-60 VLDL (Calc.) 32 mg/dL High <31 Cholesterol/HDL 3.81 Ratio <5.00 LDL (Calc.) 131 mg/dL High 0-99 1 Comp. Metabolic 10/18/2018 [facility] Glucose 96.6 mg/dL 65 -[address] [phone] BUN 19.9 mg/dL 7-21 Co2 22.2 mmol/L [...] Ratio (Calc) 1.1 Ratio 1.1-2.2 Laboratory 09/12/2018 [facility] Culture Predominant 3 test finding 17 [facility] [address] <[place] [address] NOTE> [phone] Influenza 07/31/2018 [facility] Influenza A PCR Not Detected Not A&B PCR 17 [facility] Detected [place], [place] [id number] [phone] Influenza B PCR Not Detected Not Detected Lipid Studies 05/24/2018 [facility] Triglycerides 159 mg/dL High 0-[address] [address] [phone] Cholesterol 305 mg/dL High 120-200 HDL Cholesterol 61.0 mg/dL High 40-60 VLDL (Calc.) 32 mg/dL High <31 Cholesterol/HDL 5.00 Ratio High <5.00 LDL (Calc.) 212 mg/dL High 0-99 4 Comp. Metabolic 05/24/2018 [facility] Glucose 95.7 mg/dL 65 -[address] [address] [phone] BUN 17.3 mg/dL 7-21 Co2 22.8 mmol/L [...] [facility] TSH 3.56 uIU/mL 0.5-6.[address] [address] [phone] Free T4 1.00 ng/dL 0.75-1.54 Laboratory test 10/27/2016 [facility] TSH 1.98 uIU/mL 0.5- 6.0 finding [address] [address] [phone] Free T4 1.05 ng/dL 0.75-1.54 Lipid Studies 03/19/2013 [facility] Triglycerides 160 mg/dL High 0-[address] [address] [phone] Cholesterol 268 mg/dL High 120-200 HDL Cholesterol 64.0 mg/dL High 40-60 VLDL (Calc.) 32 mg/dL High <31 Cholesterol/HDL 4.19 Ratio <5.00 LDL (Calc.) 172 mg/dL High 0-99 6 Thy (TSH And Free T4) 03/19/2013 [facility] TSH 0.84 uIU/mL 0.5-6.[address] [address] [phone] Free T4 1.13 ng/dL 0.75-1.54 Basic Metabolic 03/19/2013 [facility] Glucose 92.4 mg/dL 65 -[address] [address] [phone] BUN 17.3 mg/dL 7-21 Co2 25.2 mEq/L 22-30 Sodium 139 mEq/L 137-145 Potassium 4.0 mEq/L 3.6-5.0 Chloride 105 mEq/L 98-107 Calcium 9.8 mg/dL 9-10.5 Creatinine 0.80 mg/dL 0.52-1.25 Anion Gap (Calc) 8.8 7-16 BUN/Crea Ratio 21.6 Ratio 7-25 Laboratory test 03/19/2013 [facility] eGFR (Female) 79 >59 7 finding [address] [address] [phone] Comp. Metabolic 09/21/2012 [facility] Glucose 99.9 65-110 77 [facility] 310 mg/[place] [address] [phone] BUN 21.3 mg/dL High 7-21 Co2 24.9 [...] [facility] Triglycerides 101 mg/dL 0-[address] [address] [phone] Cholesterol 262 mg/dL High 120-200 HDL Cholesterol 54.0 mg/dL 40-60 VLDL (Calc.) 20 mg/dL <31 Cholesterol/HDL 4.85 Ratio <5.00 LDL (Calc.) 188 mg/dL High 0-99 8 Thy (TSH And Free T4) 09/21/2012 [facility] TSH 1.38 uIU/mL 0.5-6.[address] [address] [phone] Free T4 1.29 ng/dL 0.75-1.54 Laboratory test 09/21/2012 [facility] eGFR (Female) 74 >59 9 finding [address] [phone] Thy (TSH And Free 06/23/2012 [facility] TSH 2.28 0.5-6.0 T4) 77 [facility] 310 uIU/mL [place], [place] [phone] Free T4 1.03 ng/dL 0.75-1.54 Lipid Studies 06/23/2012 [facility] Triglycerides 70 mg/dL 0-[address] [phone] Cholesterol 262 mg/dL High 120-200 HDL Cholesterol 58.0 mg/dL 40-60 VLDL (Calc.) 14 mg/dL <31 Cholesterol/HDL 4.52 Ratio <5.00 LDL (Calc.) 190 mg/dL High 0-99 10 Basic Metabolic 06/23/2012 [facility] Glucose 91.0 mg/dL 65 -[address] [address] [phone] BUN 20.3 mg/dL 7-21 Co2 21.6 mEq/L Low 22-30 Sodium 139 mEq/L 137-145 Potassium 4.4 mEq/L 3.6-5.0 Chloride 106 mEq/L 98-107 Calcium 9.8 mg/dL 9-10.5 Creatinine 0.90 mg/dL 0.52-1.25 Anion Gap (Calc) 11.4 7-16 BUN/Crea Ratio 22.6 Ratio 7-25 Laboratory test 06/23/2012 [facility] eGFR (Female) 69 >59 11 finding [address] [phone] Culture Urine 09/16/2011 [facility] Culture Mixed 12 17 [facility] [place] [address] <SEE NOTE> [phone] Culture Observations MRSA screen test <SEE NOTE> 13 Thy (TSH And Free T4) 09/16/2011 [facility] TSH 2.47 uIU/mL 0.5-6.[address] [phone] Free T4 1.04 ng/dL 0.75-1.54 CBC 09/16/2011 [facility] WBC 6.1 10^3/uL 4.8-10.[address] [phone] RBC 4.42 10^6/uL 4.2-6.1 HGB 13.7 g/dL 12.0-18.0 HCT 40.3 % 37-52 MCV 91.3 fL 80.0-99.0 MCH 31.1 pg High 27.0-31.0 MCHC 34.0 g/dL 33.0-37.0 RDW 12.80 % 11.0-15.0 MPV 6.6 fL Low 7.4-10.4 Platelets 319 10^3/uL 130-400 Comp. Metabolic 09/16/2011 [facility] Glucose 94.0 mg/dL 65 -[address] [address] [phone] BUN 14.3 mg/dL 7-21 Co2 23.1 mEq/L [...] eGFR (Female) 87 >59 14 finding [address] [address] [phone] Laboratory test 09/16/2011 [facility] Amylase 33 U/L 25- 115 finding 17 [place] [address] [phone] Lipase 129 U/L 73-390 Comp. Metabolic 10/08/2010 [facility] Glucose 90.0 mg/dL 65 -[address] [address] [phone] BUN 14.5 mg/dL 7-21 Co2 23.1 mEq/L [...] [facility] WBC 6.4 10^3/uL 4.8-10.[address] [address] [phone] RBC 4.65 10^6/uL 4.2-6.1 HGB 14.2 g/dL 12.0-18.0 HCT 43.2 % 37-52 MCV 93.0 fL 80.0-99.0 MCH 30.6 pg 27.0-31.0 MCHC 32.9 g/dL Low 33.0-37.0 RDW 12.40 % 11.0-15.0 MPV 6.8 fL Low 7.4-10.4 Platelets 297 10^3/uL 130-400 Thy (TSH And Free T4) 10/08/2010 [facility] TSH 0.83 uIU/mL 0.5-6.[address] [place] [phone] [phone] Free T4 1.18 ng/dL 0.75-1.54 Laboratory test 10/08/2010 [facility] eGFR (Female) 78 >59 15 finding [address] [address] [phone] Comp. Metabolic 07/02/2010 [facility] Glucose 90.9 65-110 77 [facility] 310 mg/[place] [address] [phone] BUN 25.7 mg/dL High 7-21 Co2 21.1 [...] Assoc Triglycerides 198 mg/dL High 0-[address] [address] [phone] Cholesterol 325 mg/dL High 120-200 HDL Cholesterol 58.0 mg/dL 40-60 VLDL (Calc.) 40 mg/dL High <31 Cholesterol/HDL 5.60 Ratio High <5.00 LDL (Calc.) 227 mg/dL High 0-99 16 Thy (TSH And Free T4) 07/02/2010 [facility] TSH 3.26 uIU/mL 0.5-6.[address] [address] [phone] Free T4 0.91 ng/dL 0.75-1.54 Laboratory test 07/02/2010 [facility] eGFR (Female) 78 >59 17 finding [address] [address] [phone] Comp. Metabolic 05/27/2009 [facility] Albumin 3.82 3.3- 4.50 [address] [place] [place] [address] g/dL [place], [place] 8604383 [phone] Total Bilirubin 0.46 mg/dL 0.2-1.3 Calcium 9.7 [...] 2.3-3.5 A/G Ratio (Calc) 1.1 Ratio 1.1-2.2 Lipid Studies 05/27/2009 [facility] Cholesterol 266 mg/dL High 120-[address] [address] [phone] Triglycerides 138 mg/dL 0-149 HDL Cholesterol 62.0 mg/dL High 40-60 Direct LDL 177 High 0-99 VLDL (Calc.) 28 mg/dL <31 Cholesterol/HDL 4.29 Ratio <5.00 LDL (Calc.) 176 mg/dL High 0-99 Thy (TSH And Free T4) 05/27/2009 [facility] TSH 0.51 uIU/mL 0.5-6.[address] [place] [address] [phone] Free T4 1.12 ng/dL 0.75-1.54 Laboratory test 05/27/2009 [facility] eGFR (Female) 79 >59 18 finding [address] [phone] Laboratory test 05/27/2009 [facility] Vitamin B12 392 pg/mL [phone]) 19 finding 17 [place], [place] 0604659 [phone] CBC 05/23/2008 [facility] WBC 5.9 4.8-10.[address] 10^3/[place] [address] [phone] RBC 4.22 10^6/uL 4.2-6.1 HGB 12.9 g/dL 12.0-18.0 HCT 38.3 % 37-52 MCV 90.9 fL 80.0-99.0 MCH 30.5 pg 27.0-31.0 MCHC 33.6 g/dL 33.0-37.0 RDW 12.80 % 11.0-15.0 MPV 6.1 fL Low 7.4-10.4 Platelets 353 10^3/uL 130-400 Laboratory test finding 05/23/2008 [facility] Sed Rate 5 mm/ hr 0-[address] [place] [phone] Uric Acid 4.9 mg/dL 2.5-8.5 Renetta &Rheumatoid 05/23/2008 [facility] Renetta Screen TITER: <40 20 Factor 17 [facility] [place] <[place] [address] NOTE> [phone] Rheumatoid Factor NEGATIVE 21 Thy (TSH And Free T4) 04/08/2008 [facility] TSH 0.78 uIU/mL 0.5-6.[address] [place] [address] [phone] Free T4 1.63 ng/dL High 0.75-1.54 Lipid Studies 07/01/2006 [facility] Triglycerides 106 mg/dL 35-[address] [place] [phone] Cholesterol 304 mg/dL High 120-200 HDL Cholesterol 69.0 mg/dL High 40-60 LDL (Calc.) 214 mg/dL High 0-99 VLDL (Calc.) 21 mg/dL <31 Cholesterol/HDL 4.41 Ratio <5.00 Thy (TSH And Free T4) 07/01/2006 [facility] TSH 2.53 uIU/mL 0.5-6.[address] [place] [address] [phone] Free T4 1.31 ng/dL 0.75-1.54 Thy (TSH And Free T4) 08/31/2005 [facility] TSH 3.59 uIU/mL 0.5-6.[address] [phone] Free T4 0.91 ng/dL 0.75-1.54 Renetta &Rheumatoid 08/31/2005 [facility] Renetta Screen TITER: <[address] [place] <[place] [address] NOTE> [phone] Rheumatoid Factor NEGATIVE 23 Thy (TSH And Free T4) 05/21/2005 [facility] TSH 0.78 uIU/mL 0.5-6.[address] [address] [phone] Free T4 1.33 ng/dL 0.75-1.54 Laboratory test 03/12/2005 [facility] Free T4 1.20 ng/dL 0.75-1.54 finding [address] [address] [phone] TSH 1.55 uIU/mL 0.5-6.0 Thy (TSH And Free T4) 02/08/2005 [facility] TSH 5.18 uIU/mL 0.5-6.[address] 6553729 [phone] Free T4 0.80 ng/dL 0.75-1.54 Lipid Studies 02/08/2005 [facility] Triglycerides 162 mg/dL High 35-[address] 5422002 [phone] Cholesterol 227 mg/dL High 54-201 HDL Cholesterol 64.0 mg/dL 29-86 LDL (Calc.) 131 mg/dL 0-160 VLDL (Calc.) 32 mg/dL Cholesterol/HDL 3.55 Ratio <5.00 Thy (TSH And Free T4) 10/09/2003 [facility] TSH 1.38 uIU/mL 0.5-6.[address] [address] [phone] Free T4 1.31 ng/dL 0.75-1.54 Laboratory test 10/09/2003 [facility] Sed Rate 5 mm/hr 0- 20 finding [address] [phone] Lipid Studies 10/09/2003 [facility] Triglycerides 69 mg/dL 35-[address] [address] [phone] Cholesterol 206 mg/dL High 54-201 HDL Cholesterol 56.0 mg/dL 29-86 LDL (Calc.) 136 mg/dL 0-160 VLDL (Calc.) 14 mg/dL Cholesterol/HDL 3.68 Ratio <5.00 Comp. Metabolic 10/09/2003 [facility] Glucose 88.0 mg/dL 65 -110 77 [facility] 310 [place], [place] 0369654 [phone] BUN 14.0 mg/dL 7-21 Creatinine 0.90 mg/dL [...] >400. 17 Units expressed as mL/min/1.73m^2 18 Units expressed as mL/min/1.73m^2 19 NOTE: B12 LEVELS CAN VARY WITH INTAKE OF FOODS CONTAINING THIS VITAMIN. Testing performed by [address] [address] 20 TITER: <40 NEGATIVE Testing performed by [address] [address] 21 Testing performed by [address] [address] 22 TITER: <40 NEGATIVE Testing performed by [address] [address] 23 Testing performed by [address] [address] Procedures Date Code Description Status 11/15/2018 06301 EKG - In Office Completed 05/01/2015 64949022 Mammogram Completed 07/27/2010 65910 Destruction Premalignant Lesion, First Lesion Completed 04/15/2007 42740530 Colonoscopy Completed 04/12/2003 69396 EKG - In Office Completed Encounters Type Date Location Provider Dx Diagnosis Office Visit 09/12/2018 Main Office Sonia John J02.9 Acute pharyngitis, 11:00a [employer] unspecified Office Visit 07/31/2018 Main Office Sonia John J11.1 Flu due to 2:20p [employer] unidentified influenza virus w oth resp manifest R05 Cough J06.9 Acute upper respiratory infection, unspecified Office Visit 05/30/2018 4:00p Main Office Sonia John Z00.00 Encntr for [employer] general adult medical exam w/o abnormal findings E03.9 Hypothyroidism, unspecified E78.2 Mixed hyperlipidemia K21.0 Gastro-esophageal reflux disease with esophagitis G47.8 Other sleep disorders B37.2 Candidiasis of skin and nail Office Visit 04/15/2017 2:40p Main Office Sonia John Z00.00 Encntr for [employer] general adult medical exam w/o abnormal findings E03.9 Hypothyroidism, unspecified K21.0 Gastro-esophageal reflux disease with esophagitis J06.9 Acute upper respiratory infection, unspecified R05 Cough S50.812A Abrasion of left forearm, initial encounter Office Visit 03/24/2017 4:20p Main Office Sonia John, J06.9 Acute upper [employer] respiratory infection, unspecified R05 Cough Office Visit 11/02/2016 2:00p Main Office Pb Huffman M17.12 Unilateral primary Lurvey, DO osteoarthritis, left knee M25.462 Effusion, left knee M18.12 Unil primary osteoarth of first carpometacarp joint, l hand Office Visit 10/27/2016 3:00p Main Office Sonia John, M25.562 Pain in left [employer] knee E03.9 Hypothyroidism, unspecified Office Visit 11/21/2015 2:20p Main Office Sonia John, B02.9 Zoster without [employer] complications Office Visit 02/12/2014 4:15p Main Office Carl Thomas.9 Hypothyroidism Del Alvarez Unspec 272.2 Hyperlipidemia Mixed 530.11 Esophagitis Reflux 780.52 Insomnia Unspecified 354.0 Carpal Tunnel Syndrome Office Visit 08/13/2013 4:30p Main Office Bebo 244.9 Hypothyroidism Del Bass M.D. Unspec 272.2 Hyperlipidemia Mixed 530.11 Esophagitis Reflux 780.52 Insomnia Unspecified Office Visit 03/19/2013 1:20p Main Office Sonia 379.90 Eye Disorder Unspec Alvaro, [employer] Office Visit 03/14/2013 4:45p Main Office Carl Thomas.9 Hypothyroidism Del Alvarez Unspec 272.2 Hyperlipidemia Mixed 530.11 Esophagitis Reflux 780.52 Insomnia Unspecified Office Visit 09/14/2012 4:45p Main Office Bebo 244.Jolynn Hypothyroidism Del Bass M.D. Unspec 530.11 Esophagitis Reflux 272.2 Hyperlipidemia Mixed 780.52 Insomnia Unspecified Office Visit 03/15/2012 3:15p Main Office Bebo [id number] Hypothyroidism Del Bass M.D. Unspec 530.11 Esophagitis Reflux 272.2 Hyperlipidemia Mixed 780.52 Insomnia Unspecified V70.0 Examination General Medical Routine AT Health Care Facility Office Visit 09/29/2011 1:20p Main Office Sonia John, 465.8 Upper Respiratory [employer] Infections Acute Other Multiple Sites 786.2 Cough Office Visit 09/16/2011 2:00p Main Office Bebo Bass, 599.0 UTI Urinary Tract M.D. Infection Site Not Spec 305.1 Tobacco Use Disorder Office Visit 03/30/2011 11:15a Main Office Bebo Bass, 466.0 Bronchitis Acute M.D. 305.1 Tobacco Use Disorder Office Visit 10/08/2010 1:20p Main Office Sonia John, 780.4 Dizziness & [employer] Giddiness 244.9 Hypothyroidism Other Unspec Office Visit 07/27/2010 4:45p Main Office Bebo 272.2 Hyperlipidemia Mixed Kim Bass 244.9 Hypothyroidism Other Unspec 715.04 Osteoarthrosis Generalized Hand 701.9 Hypertrophic & Atrophic Conditions Of Skin Unspec Office Visit 02/23/2010 3:45p Main Office Bebo 272.2 Hyperlipidemia Tucker Bass M.D. 244.9 Hypothyroidism Other Unspec 530.11 Esophagitis Reflux Office Visit 11/20/2009 4:00p Main Office Bebo Bass, 780.4 Dizziness & M.D. Giddiness 786.50 Pain Chest Unspec 244.9 Hypothyroidism Other Unspec 272.2 Hyperlipidemia Mixed 530.11 Esophagitis Reflux 780.79 Malaise And Fatigue Other Office Visit 07/30/2009 1:00p Main Office Sonia John, 465.8 Upper Respiratory [employer] Infections Acute Other Multiple Sites Office Visit 05/23/2009 4:30p Main Office Bebo Bass, 244.9 Hypothyroidism Other M.D. Unspec 530.11 Esophagitis Reflux 780.79 Malaise And Fatigue Other 272.2 Hyperlipidemia Mixed Office Visit 05/22/2008 4:20p Main Office Sonia John, 719.44 Pain Joint Hand [employer] Office Visit 04/08/2008 4:00p Main Office Sonia John, 053.9 Herpes Zoster W/O [employer] Complication 244.9 Hypothyroidism Other Unspec 719.46 Pain Joint Lower Leg Office Visit 01/12/2007 9:40a Main Office Sonia John, 244.9 Hypothyroidism Other [employer] Unspec 530.11 Esophagitis Reflux 719.46 Pain Joint Lower Leg Office Visit 06/13/2006 4:20p Main Office Sonia John, 244.9 Hypothyroidism Other [employer] Unspec 530.11 Esophagitis Reflux Office Visit 12/13/2005 9:00a Main Office Sonia John, 244.9 Hypothyroidism Other [employer]IST Unspec 530.11 Esophagitis Reflux Office Visit 08/31/2005 3:00p Main Office Sonia John, 244.9 Hypothyroidism Other [employer] Unspec 530.11 Esophagitis Reflux 719.44 Pain Joint Hand Office Visit 06/15/2005 10:40a Main Office Sonia John, 462 Pharyngitis Acute [employer]IST 244.9 Hypothyroidism Other Unspec 530.11 Esophagitis Reflux Office Visit 05/21/2005 2:40p Main Office Sonia John, 244.9 Hypothyroidism Other [employer]IST Unspec 530.11 Esophagitis Reflux Office Visit 02/08/2005 [...] Main Office Bebo Bass 681.00 Cellulitis & MToribioD. Abscess Finger Unspec V06.5 Tetanus Diphtheria (DT) Office Visit 03/18/2003 11:15a Main Office Armida Mae 681.00 Cellulitis & Kim Duque Abscess Finger Unspec Plan of Treatment Future Appointment(s):06/04/2019 4:00 pm - [facility]inn[facility] [place]/15/2018 - Bebo Bass M.D.Z01.818 Encounter for other preprocedural examinationFollow up:.
--- OUTSIDE RECORDS SUMMARY | 2018-12-14 06:47 | XMS REPORT | Continuity of Care Document ---
:1955 External Reference #:[id number] Author Name Bebo Bass M.D. Address [address] [facility], [address] [place] [address] Care Team Providers Name Role Phone Bebo Bass M.D. Care Team Information Fiscal Analyst Unavailable Payers Date Identification Numbers Payment Provider Subscriber Policy Number: [id number] [employer] Jihan Gonzalez Group Number: [id number] PayID: [place] [address] Problems Active Problems Provider Date Mixed hyperlipidemia Bebo Bass M.D. Onset: 10/08/2010 Hypothyroidism Bebo Bass M.D. Onset: 10/08/2010 Gastro-esophageal reflux disease with SULY Mcginnis Onset: 05/30/2018 esophagitis Other sleep disorders SULY Mcignnis Onset: 05/30/2018 Candidiasis of skin and nails SULY Mcginnis Onset: 05/30/2018 Knee pain SULY Mcginnis Onset: 05/30/2018 Acute pharyngitis SULY Mcginnis Onset: 09/13/2018 Family History Date Family Member(s) Observation Comments Father due to Alzheimer's () Disease Father due to Diabetes () - at 78 Mother 84, htn, dm, on coumadin as of 02/07/2005 2009 Siblings Siblings: 6 , sister with thyroid [id number] dx with Vascular and chol Dementia Social History Type Date Description Comments Sex Unknown Marital Status Occupation [place] currently working Tobacco Use Start: Unknown Occasionally [...] Tablets Ketoconazole apply to affected 15gm B37.2 [facility] 05/30/2018 2% Cream area twice a [...] John, 09/12/2018 - 250mg mouth on day [facility] 09/22/2018 Tablets 1, then 1 tab by mouth day on days 2-5 Azithromycin 2 tabs by 6tabs J06.9 Sonia John, 07/31/2018 - 250mg mouth on day [facility] 08/10/2018 Tablets 1, then 1 tab by mouth day on days 2-5 Trazodone HCL 1 by mouth 30tabs G47.8 Sonia John, 05/30/2018 - 50mg every night at [facility] 10/24/2018 Tablets bedtime Sulfamethoxazole/Tri 1 by mouth 14tabs S50.812A Sonia John, 2016 - methoprim DS twice a day [facility] 04/23/2017 x7d 800-160mg Tablets Benzonatate take 1 by 30caps R05 Sonia John, 04/15/2017 - 200mg mouth three [facility] 04/25/2017 Capsules times a day as needed for cough. Azithromycin 2 tabs by 6tabs J06.9 Sonia John, 03/24/2017 - 250mg mouth on day [facility] 04/03/2017 Tablets 1, then 1 tab by mouth day on days 2-5 Valacyclovir HCL 1 by mouth 21tabs B02.9 Sonia John, 11/21/2015 - 1gm three times a [facility] 11/21/2015 Tablets day x 7 days Zovirax 1 po 5xs a 35tabs B02.9 Sonia John, 11/21/2015 - 800mg Tablets dayx7d [facility] 10/27/2016 Valacyclovir HCL 1 by mouth 21tabs B02.9 Sonia John, 11/21/2015 - 1gm three times a [facility] 10/27/2016 Tablets day x 7 days [...] 09/29/2011 - 250mg day 1, then 1 [facility] 10/09/2011 Tablets tab po day on days [...] 07/30/2009 - 250mg day 1, then 1 [facility] 08/09/2009 Tablets tab po day on days 2-5 Darvocet-N 100 1 po hs pain 30tabs Bebo Bass, 05/22/2008 - 100 M.D. 05/23/2009 Tablets Ibuprofen take 1 po tid 270tabs 719.46 Bebo Bass, 05/22/2008 - 800mg w/ food M.D. 08/13/2013 Tablets Valtrex take 1 pill 21tabs 053.9 Sonia John, 04/08/2008 - 1gm Tablets q8hrs x7d [facility] 04/15/2008 Ibuprofen 1 po q6 hours 30tabs 719.46 Sonia John, 04/08/2008 - 600mg prn with food [facility] 05/22/2008 Tablets Lipitor 1 po qd 30tabs Bebo Bass, 07/19/2006 - 20mg Tablets M.D. 01/12/2007 Zithromax Z-Elver take 2pills 462 Sonia John, 06/15/2005 - 250mg today then 1 [facility] 08/25/2005 Tablets [id number] Levothroid 1 po qd 30tabs Bebo Bass, [...] CPT Code Status Date Vaccine Lot # [id number] Given 04/15/2017 Tdap, adacel vaccine [facility] [id number] .[id number] Given 04/15/2017 Tdap, adacel vaccine [facility] 00959-479-59 .[id number] Given 03/21/2003 Tetanus&Diptheria Toxoid Immunization(deleted 2012) Vital [...] Assoc Triglycerides 162 mg/dL High 0-[address] [address] [phone] Cholesterol 221 mg/dL High 120-200 HDL Cholesterol 58.0 mg/dL 40-60 VLDL (Calc.) 32 mg/dL High <31 Cholesterol/HDL 3.81 Ratio <5.00 LDL (Calc.) 131 mg/dL High 0-99 1 Comp. Metabolic 10/18/2018 [facility] Glucose 96.6 mg/dL 65 -[address] [phone] BUN 19.9 mg/dL 7-21 Co2 22.2 mmol/L [...] Ratio (Calc) 1.1 Ratio 1.1-2.2 Laboratory 09/12/2018 [facility] Culture Predominant 3 test finding 17 [facility] [address]prehensive [address] <[place] [address] NOTE> [phone] Influenza 07/31/2018 [facility] Influenza A PCR Not Detected Not A&B PCR 17 [facility] [place] [address] [phone] Influenza B PCR Not Detected Not Detected Lipid Studies 05/24/2018 [facility] Triglycerides 159 mg/dL High 0-[address] [address] [phone] Cholesterol 305 mg/dL High 120-200 HDL Cholesterol 61.0 mg/dL High 40-60 VLDL (Calc.) 32 mg/dL High <31 Cholesterol/HDL 5.00 Ratio High <5.00 LDL (Calc.) 212 mg/dL High 0-99 4 Comp. Metabolic 05/24/2018 [facility] Glucose 95.7 mg/dL 65 -[address] [address] [phone] BUN 17.3 mg/dL 7-21 Co2 22.8 mmol/L [...] [facility] TSH 3.56 uIU/mL 0.5-6.[address] [phone] Free T4 1.00 ng/dL 0.75-1.54 Laboratory test 10/27/2016 [facility] TSH 1.98 uIU/mL 0.5- 6.0 finding [address] [phone] Free T4 1.05 ng/dL 0.75-1.54 Lipid Studies 03/19/2013 [facility] Triglycerides 160 mg/dL High 0-[address] [address] [phone] Cholesterol 268 mg/dL High 120-200 HDL Cholesterol 64.0 mg/dL High 40-60 VLDL (Calc.) 32 mg/dL High <31 Cholesterol/HDL 4.19 Ratio <5.00 LDL (Calc.) 172 mg/dL High 0-99 6 Thy (TSH And Free T4) 03/19/2013 [facility] TSH 0.84 uIU/mL 0.5-6.[address] [address] [phone] Free T4 1.13 ng/dL 0.75-1.54 Basic Metabolic 03/19/2013 [facility] Glucose 92.4 mg/dL 65 -[address] [address] [phone] BUN 17.3 mg/dL 7-21 Co2 25.2 mEq/L 22-30 Sodium 139 mEq/L 137-145 Potassium 4.0 mEq/L 3.6-5.0 Chloride 105 mEq/L 98-107 Calcium 9.8 mg/dL 9-10.5 Creatinine 0.80 mg/dL 0.52-1.25 Anion Gap (Calc) 8.8 7-16 BUN/Crea Ratio 21.6 Ratio 7-25 Laboratory test 03/19/2013 [facility] eGFR (Female) 79 >59 7 finding [address] [phone] Comp. Metabolic 09/21/2012 [facility] Glucose 99.9 65-110 77 [facility] 310 mg/dL [place], [place] [phone] BUN 21.3 mg/dL High 7-21 Co2 24.9 [...] [facility] Triglycerides 101 mg/dL 0-[address] [address] [phone] Cholesterol 262 mg/dL High 120-200 HDL Cholesterol 54.0 mg/dL 40-60 VLDL (Calc.) 20 mg/dL <31 Cholesterol/HDL 4.85 Ratio <5.00 LDL (Calc.) 188 mg/dL High 0-99 8 Thy (TSH And Free T4) 09/21/2012 [facility] TSH 1.38 uIU/mL 0.5-6.[address] [phone] Free T4 1.29 ng/dL 0.75-1.54 Laboratory test 09/21/2012 [facility] eGFR (Female) 74 >59 9 finding [address] [phone] Thy (TSH And Free 06/23/2012 [facility] TSH 2.28 0.5-6.0 T4) 77 [facility] 310 uIU/mL [place], [place] [phone] Free T4 1.03 ng/dL 0.75-1.54 Lipid Studies 06/23/2012 [facility] Triglycerides 70 mg/dL 0-[address] [address] [phone] Cholesterol 262 mg/dL High 120-200 HDL Cholesterol 58.0 mg/dL 40-60 VLDL (Calc.) 14 mg/dL <31 Cholesterol/HDL 4.52 Ratio <5.00 LDL (Calc.) 190 mg/dL High 0-99 10 Basic Metabolic 06/23/2012 [facility] Glucose 91.0 mg/dL 65 -[address] [address] [phone] BUN 20.3 mg/dL 7-21 Co2 21.6 mEq/L Low 22-30 Sodium 139 mEq/L 137-145 Potassium 4.4 mEq/L 3.6-5.0 Chloride 106 mEq/L 98-107 Calcium 9.8 mg/dL 9-10.5 Creatinine 0.90 mg/dL 0.52-1.25 Anion Gap (Calc) 11.4 7-16 BUN/Crea Ratio 22.6 Ratio 7-25 Laboratory test 06/23/2012 [facility] eGFR (Female) 69 >59 11 finding [address] [address] [phone] Culture Urine 09/16/2011 [facility] Culture Mixed 12 17 [facility] [place] [address] <SEE NOTE> [phone] Culture Observations MRSA screen test <SEE NOTE> 13 Thy (TSH And Free T4) 09/16/2011 [facility] TSH 2.47 uIU/mL 0.5-6.[address] [address] [phone] Free T4 1.04 ng/dL 0.75-1.54 CBC 09/16/2011 [facility] WBC 6.1 10^3/uL 4.8-10.[address] [address] [phone] RBC 4.42 10^6/uL 4.2-6.1 HGB 13.7 g/dL 12.0-18.0 HCT 40.3 % 37-52 MCV 91.3 fL 80.0-99.0 MCH 31.1 pg High 27.0-31.0 MCHC 34.0 g/dL 33.0-37.0 RDW 12.80 % 11.0-15.0 MPV 6.6 fL Low 7.4-10.4 Platelets 319 10^3/uL 130-400 Comp. Metabolic 09/16/2011 [facility] Glucose 94.0 mg/dL 65 -[address] [place] [address] [phone] BUN 14.3 mg/dL 7-21 Co2 23.1 mEq/L [...] eGFR (Female) 87 >59 14 finding [address] [address] [phone] Laboratory test 09/16/2011 [facility] Amylase 33 U/L 25- 115 finding 17 [place] [address] [phone] Lipase 129 U/L 73-390 Comp. Metabolic 10/08/2010 [facility] Glucose 90.0 mg/dL 65 -[address] [place] [address] [phone] BUN 14.5 mg/dL 7-21 Co2 23.1 mEq/L [...] [facility] WBC 6.4 10^3/uL 4.8-10.[address] [place] [address] [phone] RBC 4.65 10^6/uL 4.2-6.1 HGB 14.2 g/dL 12.0-18.0 HCT 43.2 % 37-52 MCV 93.0 fL 80.0-99.0 MCH 30.6 pg 27.0-31.0 MCHC 32.9 g/dL Low 33.0-37.0 RDW 12.40 % 11.0-15.0 MPV 6.8 fL Low 7.4-10.4 Platelets 297 10^3/uL 130-400 Thy (TSH And Free T4) 10/08/2010 [facility] TSH 0.83 uIU/mL 0.5-6.[address] [place] [address] [phone] Free T4 1.18 ng/dL 0.75-1.54 Laboratory test 10/08/2010 [facility] eGFR (Female) 78 >59 15 finding [address] [address] [phone] Comp. Metabolic 07/02/2010 [facility] Glucose 90.9 65-110 77 [facility] 310 mg/dL [place], [place] 9164534 [phone] BUN 25.7 mg/dL High 7-21 Co2 21.1 [...] Assoc Triglycerides 198 mg/dL High 0-[address] [phone] Cholesterol 325 mg/dL High 120-200 HDL Cholesterol 58.0 mg/dL 40-60 VLDL (Calc.) 40 mg/dL High <31 Cholesterol/HDL 5.60 Ratio High <5.00 LDL (Calc.) 227 mg/dL High 0-99 16 Thy (TSH And Free T4) 07/02/2010 [facility] TSH 3.26 uIU/mL 0.5-6.[address] [phone] Free T4 0.91 ng/dL 0.75-1.54 Laboratory test 07/02/2010 [facility] eGFR (Female) 78 >59 17 finding [address] [address] [phone] Laboratory test 05/27/2009 [facility] Vitamin B12 392 pg/mL (211-946) 18 finding 17 [place] [address] [phone] Laboratory test 05/27/2009 [facility] eGFR (Female) 79 >59 19 finding [address] [address] [phone] Thy (TSH And Free 05/27/2009 [facility] TSH 0.51 0.5-6.0 T4) 77 [place] [address] uIU/mL [place], [place] [phone] Free T4 1.12 ng/dL 0.75-1.54 Lipid Studies 05/27/2009 [facility] Cholesterol 266 mg/dL High 120-[address] [phone] Triglycerides 138 mg/dL 0-149 HDL Cholesterol 62.0 mg/dL High 40-60 Direct LDL 177 High 0-99 VLDL (Calc.) 28 mg/dL <31 Cholesterol/HDL 4.29 Ratio <5.00 LDL (Calc.) 176 mg/dL High 0-99 Comp. Metabolic 05/27/2009 [facility] Albumin 3.82 g/dL 3.3 -4.[address] [address] [phone] Total Bilirubin 0.46 mg/dL 0.2-1.3 Calcium 9.7 [...] [facility] WBC 5.9 10^3/uL 4.8-10.[address] [place] [address] [phone] RBC 4.22 10^6/uL 4.2-6.1 HGB 12.9 g/dL 12.0-18.0 HCT 38.3 % 37-52 MCV 90.9 fL 80.0-99.0 MCH 30.5 pg 27.0-31.0 MCHC 33.6 g/dL 33.0-37.0 RDW 12.80 % 11.0-15.0 MPV 6.1 fL Low 7.4-10.4 Platelets 353 10^3/uL 130-400 Laboratory test finding 05/23/2008 [facility] Sed Rate 5 mm/ hr 0-[address] [place] [address] [phone] Uric Acid 4.9 mg/dL 2.5-8.5 Renetta &Rheumatoid 05/23/2008 [facility] Renetta Screen TITER: <40 20 Factor 17 [facility] [place]GA <[place] [address] NOTE> [phone] Rheumatoid Factor NEGATIVE 21 Thy (TSH And Free T4) 04/08/2008 [facility] TSH 0.78 uIU/mL 0.5-6.[address] [place] [address] [phone] Free T4 1.63 ng/dL High 0.75-1.54 Thy (TSH And Free T4) 07/01/2006 [facility] TSH 2.53 uIU/mL 0.5-6.[address] [place] [address] [phone] Free T4 1.31 ng/dL 0.75-1.54 Lipid Studies 07/01/2006 [facility] Triglycerides 106 mg/dL 35-[address] [place] [address] [phone] Cholesterol 304 mg/dL High 120-200 HDL Cholesterol 69.0 mg/dL High 40-60 LDL (Calc.) 214 mg/dL High 0-99 VLDL (Calc.) 21 mg/dL <31 Cholesterol/HDL 4.41 Ratio <5.00 Renetta &Rheumatoid 08/31/2005 [facility] Renetta Screen TITER: <[address] [place] <[place] [address] NOTE> [phone] Rheumatoid Factor NEGATIVE 23 Thy (TSH And Free T4) 08/31/2005 [facility] TSH 3.59 uIU/mL 0.5-6.[address] [place] [address] [phone] Free T4 0.91 ng/dL 0.75-1.54 Thy (TSH And Free T4) 05/21/2005 [facility] TSH 0.78 uIU/mL 0.5-6.[address] [place] [address] [phone] Free T4 1.33 ng/dL 0.75-1.54 Laboratory test 03/12/2005 [facility] Free T4 1.20 ng/dL 0.75-1.[address] [place] [address] [phone] TSH 1.55 uIU/mL 0.5-6.0 Thy (TSH And Free T4) 02/08/2005 [facility] TSH 5.18 uIU/mL 0.5-6.[address] [place] [address] [phone] Free T4 0.80 ng/dL 0.75-1.54 Lipid Studies 02/08/2005 [facility] Triglycerides 162 mg/dL High 35-[address] [place] [address] 0753239 [phone] Cholesterol 227 mg/dL High 54-201 HDL Cholesterol 64.0 mg/dL 29-86 LDL (Calc.) 131 mg/dL 0-160 VLDL (Calc.) 32 mg/dL Cholesterol/HDL 3.55 Ratio <5.00 Thy (TSH And Free T4) 10/09/2003 [facility] TSH 1.38 uIU/mL 0.5-6.[address] [place] [address] [phone] Free T4 1.31 ng/dL 0.75-1.54 Laboratory test 10/09/2003 [facility] Sed Rate 5 mm/hr 0- [address] [place] [address] [phone] Lipid Studies 10/09/2003 [facility] Triglycerides 69 mg/dL 35-[address] [address] [phone] Cholesterol 206 mg/dL High 54-201 HDL Cholesterol 56.0 mg/dL 29-86 LDL (Calc.) 136 mg/dL 0-160 VLDL (Calc.) 14 mg/dL Cholesterol/HDL 3.68 Ratio <5.00 Comp. Metabolic 10/09/2003 [facility] Glucose 88.0 mg/dL 65 -[address] [address] [phone] BUN 14.0 mg/dL 7-21 Creatinine 0.90 mg/dL [...] FOODS CONTAINING THIS VITAMIN. Testing performed by [address] [address] 19 Units expressed as mL/min/1.73m^2 20 TITER: <40 NEGATIVE Testing performed by [address] [address] 21 Testing performed by [address] [address] 22 TITER: <40 NEGATIVE Testing performed by [address] [address] 23 Testing performed by [address] [address] Procedures Date Code Description Status 11/15/2018 40556 EKG - In Office Completed 11/15/2018 05480 EKG - In Office Completed 05/01/2015 73491807 Mammogram Completed 07/27/2010 15953 Destruction Premalignant Lesion, First Lesion Completed 04/15/2007 54380673 Colonoscopy Completed 04/12/2003 69870 EKG - In Office Completed Encounters Type Date Location Provider Dx Diagnosis Office Visit 09/12/2018 Main Office Sonia John, J02.9 Acute pharyngitis, 11:00a [facility] unspecified Office Visit 07/31/2018 Main Office Sonia John, J11.1 Flu due to 2:20p [facility] unidentified influenza virus w oth resp manifest R05 Cough J06.9 Acute upper respiratory infection, unspecified Office Visit 05/30/2018 4:00p Main Office Sonia John, Z00.00 Encntr for [facility] general adult medical exam w/o abnormal findings E03.9 Hypothyroidism, unspecified E78.2 Mixed hyperlipidemia K21.0 Gastro-esophageal reflux disease with esophagitis G47.8 Other sleep disorders B37.2 Candidiasis of skin and nail Office Visit 04/15/2017 2:40p Main Office Sonia John, Z00.00 Encntr for [facility] general adult medical exam w/o abnormal findings E03.9 Hypothyroidism, unspecified K21.0 Gastro-esophageal reflux disease with esophagitis J06.9 Acute upper respiratory infection, unspecified R05 Cough S50.812A Abrasion of left forearm, initial encounter Office Visit 03/24/2017 4:20p Main Office Sonia John, J06.9 Acute upper [facility] [employer] respiratory infection, unspecified R05 Cough Office Visit 11/02/2016 2:00p Main Office Pb Huffman M17.12 Unilateral primary [place]ur[place], DO osteoarthritis, left knee M25.462 Effusion, left knee M18.12 Unil primary osteoarth of first carpometacarp joint, l hand Office Visit 10/27/2016 3:00p Main Office Sonia John, M25.562 Pain in left [employer] [employer] knee E03.9 Hypothyroidism, unspecified Office Visit 11/21/2015 2:20p Main Office Sonia John, B02.9 Zoster without [facility] complications Office Visit 02/12/2014 4:15p Main Office Bebo Bass 244.9 Hypothyroidism Other Kim Unspec 272.2 Hyperlipidemia Mixed 530.11 Esophagitis Reflux 780.52 Insomnia Unspecified 354.0 Carpal Tunnel Syndrome Office Visit 08/13/2013 4:30p Main Office Bebo 244.9 Hypothyroidism Del Bass M.D. Unspec 272.2 Hyperlipidemia Mixed 530.11 Esophagitis Reflux 780.52 Insomnia Unspecified Office Visit 03/19/2013 1:20p Main Office Sonia 379.90 Eye Disorder Unspec [facility] Office Visit 03/14/2013 4:45p Main Office Bebo [...] Main Office Sonia John, 465.8 Upper Respiratory [facility] [employer] Infections Acute Other Multiple Sites 786.2 Cough Office Visit 09/16/2011 2:00p Main Office Bebo Bass, 599.0 UTI Urinary Tract M.D. Infection Site Not Spec 305.1 Tobacco Use Disorder Office Visit 03/30/2011 11:15a Main Office Bebo Bass, 466.0 Bronchitis Acute M.D. 305.1 Tobacco Use Disorder Office Visit 10/08/2010 1:20p Main Office Sonia John, 780.4 Dizziness & [employer] Giddiness 244.9 Hypothyroidism Other Unspec Office Visit [...] Main Office Sonia John, 465.8 Upper Respiratory [employer] Infections Acute Other Multiple Sites Office Visit 05/23/2009 4:30p Main Office Bebo Bass, 244.9 Hypothyroidism Other M.D. Unspec 530.11 Esophagitis Reflux 780.79 Malaise And Fatigue Other 272.2 Hyperlipidemia Mixed Office Visit 05/22/2008 4:20p Main Office Sonia John, 719.44 Pain Joint Hand [employer] Office Visit 04/08/2008 4:00p Main Office Sonia John, 053.9 Herpes Zoster W/O [employer] Complication 244.9 Hypothyroidism Other Unspec 719.46 Pain Joint Lower Leg Office Visit 01/12/2007 9:40a Main Office Sonia John, 244.9 Hypothyroidism Other [employer] Unspec 530.11 Esophagitis Reflux 719.46 Pain Joint Lower Leg Office Visit 06/13/2006 4:20p Main Office Sonia John, 244.9 Hypothyroidism Other [employer] Unspec 530.11 Esophagitis Reflux Office Visit 12/13/2005 9:00a Main Office Sonia John, 244.9 Hypothyroidism Other [employer] Unspec 530.11 Esophagitis Reflux Office Visit 08/31/2005 3:00p Main Office Sonia John, 244.9 Hypothyroidism Other [employer] Unspec 530.11 Esophagitis Reflux 719.44 Pain Joint Hand Office Visit 06/15/2005 10:40a Main Office Sonia John, 462 Pharyngitis Acute [employer] 244.9 Hypothyroidism Other Unspec 530.11 Esophagitis Reflux Office Visit 05/21/2005 2:40p Main Office Sonia John, 244.9 Hypothyroidism Other [employer] Unspec 530.11 Esophagitis Reflux Office Visit 02/08/2005 [...] 4:00 pm - SULY Mcginnis at Main [id number]/15/2018 - Bebo Bass M.D.Z01.818 Encounter for other preprocedural examinationFollow up:.E78.2 Mixed hyperlipidemiaNew Labs:Lipid Studies, Scheduled: 03/21/19Comp. Metabolic, Scheduled: 03/21/19Thy (TSH And Free T4), Scheduled: 03/21/19E03.8 HypothyroidismFollow up:4-6 months drglryX35.9 Gastroesophageal reflux diseaseFollow up:.M25.562 Knee painFollow up :.AllNew Medication:Mometasone Furoate 0.1 % - apply to dry skin 1-2 times a day
[2018-12-14] MEDS ORDERED: ROPIVACAINE 5 MG/ML 30 ML BTL (0.5%) ONE ×2 (06:49→08:26)
[2018-12-14] MEDS ORDERED: Buffered Lidocaine 1% SYRIN* 1 ML/SYRINGE INTRADERM ONE (07:21)
[2018-12-14] MEDS ORDERED: Clindamycin 900 MG IVPREMIX(* 900 MG/50 ML SDV IV ONE (07:21)
[2018-12-14] MEDS ORDERED: Gabapentin CAP(*) 300 MG ONE (07:21)
[2018-12-14] MEDS ORDERED: Famotidine IV* 10 MG/ML 2 ML (20 mg) ONE (07:22)
[2018-12-14] MEDS ORDERED: Lidocaine 1%* 5 ML VIAL ONE (08:26)
[2018-12-14] MEDS ORDERED: Midazolam* 1 MG/ML 5 ML VIAL (5 MG) ONE (08:39)
[2018-12-14] MEDS ORDERED: fentaNYL* 50 MCG/ML 2 ML VIAL (100 MCG VIAL) ONE (08:39)
[2018-12-14] MEDS ORDERED: KETAMINE HCL* 50 MG/ML 10 ML VIAL ONE (09:17)
[2018-12-14] MEDS ORDERED: DiMENhydriNATE IV* 50 MG/ML VIAL ONE (09:25)
[2018-12-14] MEDS ORDERED: Ondansetron INJ* 2 MG/ML VIAL ONE (09:25)
[2018-12-14] MEDS ORDERED: Dexamethasone IV* 4 MG/ML 1 ML (4 MG) ONE (09:25)
[2018-12-14] MEDS ORDERED: Lidocaine 2% PF * 5 ML VIAL ONE (09:25)
[2018-12-14] MEDS ORDERED: Ketorolac INJ* 30 MG/ML 1 ML VIAL ONE (09:25)
[2018-12-14] MEDS ORDERED: Propofol* 10 MG/ML 20 ML BTL ONE (09:25)
[2018-12-14] MEDS ORDERED: Naloxone* 0.4 MG/ML 1 ML VIAL IV PRN (10:09)
[2018-12-14] MEDS ORDERED: HYDROmorphone INJ1* 1 MG/ML SYRINGE IV PRN (10:09)
[2018-12-14] MEDS ORDERED: DiMENhydriNATE IV* 50 MG/ML VIAL IV PUSH PRN (10:09)
[2018-12-14] MEDS ORDERED: HYDROcodone/ACETAMIN 5-325 MG* 1 TAB PO PRN (10:09)
[2018-12-14] MEDS ORDERED: Gabapentin CAP(*) 100 MG PO ONE (10:10)
[2018-12-14] MEDS ORDERED: Polyethylene Glycol 3350* 17 GM PACKET PO PRN (11:27)
[2018-12-14] MEDS ORDERED: oxyCODONE/Acetamin 5/325 MG* TAB PO PRN (11:27)
[2018-12-14] MEDS ORDERED: Ondansetron INJ* 2 MG/ML VIAL IV PRN (11:27)
[2018-12-14] MEDS ORDERED: Ondansetron TAB* 4 MG PO PRN (11:27)
[2018-12-14] MEDS ORDERED: Bisacodyl SUPP* 10 MG SUPP PR PRN (11:27)
[2018-12-14] MEDS ORDERED: Magnesium Hydroxide LIQ* 30 ML UDC PO PRN (11:27)
[2018-12-14] MEDS ORDERED: traMADol TAB* 50 MG PO PRN (11:27)
[2018-12-14] MEDS ORDERED: Morphine 4 MG/ML VIAL (1 ml) 4 MG/ML VIAL IV PRN (11:27)
[2018-12-14] MEDS ORDERED: diPHENhydraMINE IV* 50 MG/ML 1 ml VIAL (BENADRYL) IV PRN (11:27)
[2018-12-14] MEDS: Lactated Ringers 1000 ML Bag* 1,000 ML IV SCH ×2 (12:58→23:38)
[2018-12-14] MEDS: Acetaminophen TAB* 325 MG PO SCH ×2 (13:16→22:13)
[2018-12-14] MEDS: oxyCODONE/Acetamin 5/325 MG* TAB PO PRN ×2 (14:47→21:35)
--- NOTE | 2018-12-14 14:49 | PN ---
Progress Note - Progress Note Date of Service: 12/14/18 Note: Patient seen at bedside. She feels well, denies left knee pain. +DF left ankle. Sensation and circulation intact distally s/p LTK arthroplasty this am.
[2018-12-14] MEDS: Clindamycin 600 MG IVPREMIX(* 600 MG/50 ML SDV IV SCH (16:40)
[2018-12-14] MEDS: oxyCODONE TAB* 5 MG TAB PO PRN ×2 (17:57→23:43)
--- NOTE | 2018-12-14 18:41 | OP ---
Operative Report - Blank - Operative Report Date of Operation: 12/14/18 Note: MASOOD AUSTIN 1955 Date of Surgery: 12/14/18 Mary Ann Rodriguez MD Radio Machinist: Priscilla BRYANT did help throughout the procedure with preparation of the knee, wound retraction, manipulation of the knee, and wound closure. Anesthesiologist: Armida Meza MD Anesthesia Type: Spinal Preoperative Diagnosis: Left severe degenerative osteoarthritis of the knee Postoperative Diagnosis: As above Procedure Performed: Left Total Knee Arthroplasty Tourniquet time: 49 minutes Complications: None Specimen: Bone and cartilage from the left knee joint sent to pathology. Hardware Used: Cemented Wall [employer] Nephew total knee hardware was used - For the femur a size 6 left narrow legion posterior stabilized femoral component, for the tibia a size 4 left suleiman II tibial baseplate, for the insert a size 11 mm posterior stabilized high flex articular polyethylene insert, and for the patella a size 35 3-peg all poly patella. Brief History/Indication: MASOOD AUSTIN was known in clinic and had a history of severe left knee pain and swelling. She failed conservative treatment with anti-inflammatories, pain pills, intra-articular injections and physical therapy. She elected to undergo left total knee arthroplasty due to continued pain and decreased quality of life. Radiographs showed severe end stage osteoarthritis of the knee with bone on bone contact. Informed consent was obtained from the patient. She understood the risks of surgery included but were not limited to: bleeding, infection, damage to nearby structures, intraoperative fracture, nerve palsy, failure of the hardware, early loosening, knee stiffness or loss of motion, anesthesia complications, stroke, heart attack , blood clot and . She wished to proceed. Intra-Operative Findings: Intraoperatively the patient was noted to have severe loss of cartilage in all 3 compartments of the knee. Description of the Procedure: MASOOD AUSTIN was identified in the preanesthesia unit. Her left knee was marked as the correct operative side. Informed consent was signed and placed in the chart. The patient was taken to the operating room and placed under anesthesia without complication. A michelle catheter was placed. A tourniquet was placed on the left thigh. The left lower extremity was prepped and draped in the usual sterile fashion. Preoperative time-out was made to correctly identify the patient, side and site. Appropriate intraoperative antibiotics were given within one hour of incision. Tourniquet was inflated. A midline incision was made and carried sharply down to the extensor mechanism. A new 10 blade was used to make a standard medial parapatellar arthrotomy. The patella was subluxed laterally. Electrocautery was used to dissect soft tissue off the superomedial tibia to the midsagittal plane. The knee was flexed up. The anterior horn of the lateral meniscus and the ACL were sharply incised. A drill was used to enter the distal femur. The intramedullary distal femoral cutting guide was pinned on the distal femur. The oscillating saw was used to make the distal femoral cut. The external rotation guide was pinned on the distal femur and the distal femur was sized to a size 6. The size 6 multi-cutting jig was pinned on the distal femur. The oscillating saw was used to make the appropriate 4 chamfer cuts. Next the PCL was completely released. The extramedullary tibial cutting guide was pinned on the proximal tibia and the oscillating saw was used to make the proximal tibial cut perpendicular to the mechanical axis of the tibia. The bone was carefully removed. The knee was brought out into full extension. The spacer block was placed and had excellent fit with the knee in full extension. The medial and lateral ligaments were well balanced. The flexion and extension gaps were well balanced. The knee was flexed up. Lamina dbas was placed both medially and laterally. Any remaining meniscus was removed with electrocautery. Curved osteotome was used to remove any posterior osteophytes. The tibial tray and drop jimena were placed and confirmed a satisfactory tibial cut. The size 6 left femoral trial was impacted onto the distal femur. This trial had excellent fit and stability. The box for the posterior stabilized implant was prepared using a box cut osteotome and a reamer. Next a tibial tray trial and 9 mm insert trial was placed. The knee was taken through a range of motion and had full extension to 130 degrees of flexion. Patellofemoral tracking was satisfactory. The patella was inverted and sized to a size 35. Three peg holes were drilled through the size 35 drill guide. The trial patella was placed and the knee was taken through a range of motion. There was satisfactory patellofemoral tracking. All trials were removed. The tibia was subluxed anteriorly and sized to a size 4. The proximal tibial was prepared with a size 4 keel punch. All bony cut surfaces were irrigated with sterile saline and dried. Final implants were cemented into place starting with the tibia, followed by the femur, and last the patella. A 9 mm insert trial was placed and the knee was brought into full extension. Tourniquet was turned down and the knee was copiously irrigated with sterile saline. Electrocautery was used to obtain meticulous hemostasis. Once the cement had fully cured, the insert trial was removed. Any excess cement was removed from around the hardware and capsule. Final insert chosen was a 11 mm posterior stabilized Suleiman II articular insert size 3-4. Stability of the insert was checked and noted to be stable. The extensor mechanism was closed using number 1 vicryls. The rest of the incision was closed in a layered fashion using 0 and 2-0 vicryls. The skin was closed using 3-0 nylon suture. Sterile xeroform, 4x4s and webril were used to cover the incision. Seb wrap and cold pack were used to cover the dressings. The patients anesthesia was reversed without difficulty. She was taken to the PACU in stable condition. Intended weight-bearing will be as tolerated.
[2018-12-14] MEDS ORDERED: traZODone TAB* 100 MG PO SCH (21:00)
[2018-12-14] MEDS: Docusate CAP* 100 MG PO SCH (21:35)
[2018-12-14] MEDS: Magnesium Hydroxide LIQ* 30 ML UDC PO SCH (22:14)
[2018-12-14] MEDS: Cyclobenzaprine TAB* 10 MG PO PRN (23:42)
[2018-12-15] MEDS: Clindamycin 600 MG IVPREMIX(* 600 MG/50 ML SDV IV SCH ×2 (01:51→10:20)
[2018-12-15] MEDS: Acetaminophen TAB* 325 MG PO SCH ×2 (03:47→11:34)
[2018-12-15] MEDS: oxyCODONE TAB* 5 MG TAB PO PRN (05:58)
[2018-12-15] MEDS ORDERED: Levothyroxine TAB* 88 MCG TAB PO SCH (06:00)
[2018-12-15 06:14] LABS: Hematocrit 34 % (35-47); Hemoglobin 11.4 g/dL (12.0-16.0); Mean Platelet Volume 6.4 fL (7.4-10.4); Platelet Count 249 10^3/uL (150-450)
[2018-12-15 06:36] LABS: BUN/Creatinine Ratio 28.4 (8-20); Calcium 8.7 mg/dL (8.6-10.3); EGFR African American 96.2 (>60); EGFR Non-African American 79.5 (>60); Potassium 4.3 mmol/L (3.5-5.0)
[2018-12-15] MEDS: Cyclobenzaprine TAB* 10 MG PO PRN (07:58)
[2018-12-15] MEDS: Docusate CAP* 100 MG PO SCH (07:59)
[2018-12-15] MEDS: Magnesium Hydroxide LIQ* 30 ML UDC PO SCH (08:00)
[2018-12-15] MEDS ORDERED: Apixaban* 2.5 MG TAB PO SCH (09:00)
[2018-12-15] MEDS ORDERED: Pantoprazole TAB * 40 MG TAB PO SCH (09:00)
[2018-12-15] MEDS: oxyCODONE/Acetamin 5/325 MG* TAB PO PRN ×2 (10:19→13:54)
--- NOTE | 2018-12-15 11:40 | DS ---
Orthopedic Discharge Summary - Discharge Summary Date of Admission:12/14/18 Date of Discharge: 12/15/18 Date of Surgery: 12/14/18 Attending Orthopedic Provider: Dr. Rodriguez Pre-operative Diagnosis: Degenerative arthritis left knee Operative Procedure: Left total knee arthroplasty Disposition of Patient: home Condition of Patient: stable History: MASOOD AUSTIN is a 63 year old F with years of increasingly severe left knee pain. Patient has failed conservative management and has elected to undergo a left total knee replacement Hospital Course: MASOOD was admitted to [facility] on 12/14/18. Patient underwent a left total knee replacement without complication followed by a brief recovery in PACU and transfer to the Short Stay Surgical Unit in stable condition. Our hospitalist service, physical therapy and occupational therapy also participated in this patients care. Post-op day 1: patient was alert and in no acute distress. Dressing was clean, dry and intact. Operative extremity dorsiflexion and plantarflexion intact, sensation intact to light touch distally, DP2+ Dressing was changed, incision was clean, dry and intact. Patient was deemed to be medically and orthopedically stable for discharge. Physical therapy goals were met. Home Medications Medication Instructions Recorded Confirmed Type Equate Allergy Med 1 - 2 tab PO QAM 12/01/18 12/14/18 History Levothyroxine Sodium 88 mcg PO QAM 12/01/18 12/14/18 History Omeprazole 40 mg PO QAM 12/01/18 12/14/18 History Rosuvastatin Calcium 10 mg PO QAM 12/01/18 12/14/18 History Trazodone HCl 100 mg PO BEDTIME 12/01/18 12/14/18 History Apixaban* [Eliquis*] 2.5 mg PO BID #60 tab 12/15/18 Rx Docusate CAP* [Colace Cap*] 100 mg PO BID cap 12/15/18 Rx oxyCODONE/Acetamin 5/325 MG* 1 - 2 tab PO Q4H PRN #56 tab MDD 8 12/15/18 Rx [Percocet 5/325 TAB*] Discharge home this afternoon WBAT LLE Eliquis for DVT prophylaxis Percocet for pain Follow up in 10-[address] Rodriguez
[2018-12-15 11:41] VITALS: BP 103/56
== END 2018-12-15 14:10 | disposition home health service (06) | DRG 302 ==
LOC: AA 06:43 → SSU 11:28
PROVIDERS: ADMIT Orthopaedic Surgery Adult Reconstructive Orthopaedic Surgery; ATTEND Orthopaedic Surgery Adult Reconstructive Orthopaedic Surgery
PROC: 0SRD0J9 Replacement of Left Knee Joint with Synthetic Substitute, Cemented, Open Approach (ICD-10-PCS; principal; 2018-12-14 09:00)
DX: M17.12 Unilateral primary osteoarthritis, left knee (principal); E03.9 Hypothyroidism, unspecified; E78.00 Pure hypercholesterolemia, unspecified; K21.9 Gastro-esophageal reflux disease without esophagitis; I34.1 Nonrheumatic mitral (valve) prolapse; E78.2 Mixed hyperlipidemia; M25.762 Osteophyte, left knee; M25.462 Effusion, left knee; Z82.0 Family history of epilepsy and other diseases of the nervous system; Z88.0 Allergy status to penicillin; Z88.5 Allergy status to narcotic agent; Z82.49 Family history of ischemic heart disease and other diseases of the circulatory system; Z83.3 Family history of diabetes mellitus; Z72.89 Other problems related to lifestyle; Z87.891 Personal history of nicotine dependence; Z83.49 Family history of other endocrine, nutritional and metabolic diseases
CPT/HCPCS: 36415; 80048; 85014; 85018; 85049; A9270-GY; J1100; J1240; J1885; J2250; J2405; J2704; J2795; J3010

== ENCOUNTER 2021-04-07 09:07 | Observation (INO) ==
[~2021-04-07 09:07] MED LIST changes: +Buffered Lidocaine 1% SYRIN 1 ml INTRADERM ONE; -Buffered Lidocaine 1% SYRIN* 1 ML/SYRINGE INTRADERM ONE; +Clindamycin 900 MG/D5W BAG 900 MG/50 ML BAG IVPB ONE; -Famotidine IV* 10 MG/ML 2 ML (20 mg) IV ONE; -Gabapentin CAP(*) 300 MG PO ONE; -Lactated Ringers 1000 ML Bag* 1,000 ML IV SCH; +Lactated Ringers 1000 ml BAG 1,000 ML IV SCH; -Tranexamic Acid 1,000 MG in NS 0.9% 50 ML* (outpatient use) IV SCH
[2021-04-07] MEDS ORDERED: Propofol 10 MG/ML 20 ML BTL ONE ×2 (09:38→12:58)
[2021-04-07] MEDS ORDERED: Lidocaine 2% PF 5 ML VIAL ONE ×2 (10:11→10:20)
[2021-04-07] MEDS ORDERED: fentaNYL 100 mcg/2 ml 50 MCG/ML VIAL ONE (10:11)
[2021-04-07] MEDS ORDERED: ROPIVACAINE 5 MG/ML 30 ML BTL (0.5%) ONE (10:11)
[2021-04-07] MEDS ORDERED: Midazolam 5 mg/5 ml VIAL 1 mg/ml 5 ml VIAL (5 mg) ONE (10:11)
[2021-04-07] MEDS ORDERED: Phenylephrine IV 10 MG/ML 1 ml VIAL ONE (10:21)
[2021-04-07] MEDS ORDERED: Dexamethasone IV 4 MG/ML VIAL 1 ml VIAL ONE (10:22)
[2021-04-07] MEDS ORDERED: Ondansetron 4 mg VIAL 2 MG/ML 2 ml VIAL ONE (10:22)
[2021-04-07] MEDS ORDERED: Ropivacaine 5 MG/ML 20 ML VIAL 0.5% (100 MG) ONE (11:17)
[2021-04-07] MEDS ORDERED: Magnesium Hydroxide LIQ 30 ML UDC PO PRN (13:07)
[2021-04-07] MEDS ORDERED: Ondansetron ODT 4 mg TAB 4 MG TAB PO PRN (13:07)
[2021-04-07] MEDS ORDERED: diPHENhydraMINE IV 50 MG/ML 1 ml VIAL (BENADRYL) IV PRN (13:07)
[2021-04-07] MEDS ORDERED: diPHENhydraMINE 25 mg TAB PO PRN (13:07)
[2021-04-07] MEDS ORDERED: Morphine 2 MG/ML SYRINGE IV PRN (13:07)
[2021-04-07] MEDS ORDERED: Ondansetron 4 mg VIAL 2 MG/ML 2 ml VIAL IV PRN ×2 (13:07→14:43)
[2021-04-07] MEDS ORDERED: Lactulose 30 ml UDC PO PRN (13:07)
[2021-04-07] MEDS ORDERED: fentaNYL 100 mcg/2 ml 50 MCG/ML VIAL IV PRN (14:43)
[2021-04-07] MEDS ORDERED: HYDROmorphone 1 MG/1 ML SYRINGE IV PRN (14:43)
[2021-04-07] MEDS ORDERED: Naloxone 0.4 mg VIAL 0.4 mg/ml 1 ml VIAL IV PRN (14:43)
[2021-04-07] MEDS: Lactated Ringers 1000 ml BAG 1,000 ML IV SCH (15:51)
[2021-04-07] MEDS: Clindamycin 600 MG/D5W BAG 600 MG/50 ML BAG IV SCH (20:34)
[2021-04-07] MEDS: Magnesium Hydroxide LIQ 30 ML UDC PO SCH (22:44)
[2021-04-08] MEDS: Clindamycin 600 MG/D5W BAG 600 MG/50 ML BAG IV SCH ×2 (03:53→11:44)
[2021-04-08] MEDS: Lactated Ringers 1000 ml BAG 1,000 ML IV SCH (04:53)
[2021-04-08 06:58] LABS: Hematocrit 35 % (35-47); Hemoglobin 11.9 g/dL (12.0-16.0); Mean Platelet Volume 6.7 fL (7.4-10.4); Platelet Count 261 10^3/uL (150-450)
[2021-04-08 07:17] LABS: Potassium 4.2 mmol/L (3.5-5.0)
[2021-04-08] MEDS: Magnesium Hydroxide LIQ 30 ML UDC PO SCH (08:42)
[2021-04-08] MEDS ORDERED: Vitamin THERAPEUTIC TAB PO SCH (09:00)
[2021-04-08 12:04] VITALS: BP 114/59
== END 2021-04-08 15:37 | disposition home or self-care (01) ==
LOC: OR 09:07 → SSU 09:07 → EDSTATUS 10:45
PROVIDERS: ADMIT Orthopaedic Surgery Adult Reconstructive Orthopaedic Surgery; ATTEND Orthopaedic Surgery Adult Reconstructive Orthopaedic Surgery